=== PATIENT | male | born 1935 | race Caucasian/White ===

== ENCOUNTER → 2016-06-11 | Outpatient (CLI) | payer MEDICARE, BC ==
[2016-06-11 14:10] LABS: CH 32.3; CHCM 32.4; HCT 39.6 % (39.0-53.0); HDW 2.66; HGB 12.1 gm/dL (13.0-17.5); MCH 30.7 pg (25.0-35.0); MCHC 30.6 g/dL (31.0-37.0); MCV 100.1 fL (80.0-100.0); Macrocytosis Slight; Mean Platelet Volume 7.6; RBC 3.95 m/uL (4.30-5.90); RDW 15.7 % (11.5-15.5); WBC 9.7 k/uL (3.8-10.6)
[2016-06-11 14:44] LABS: Calcium 9.3 mg/dL (8.4-10.2); Phosphorous 3.2 mg/dL (2.5-4.5); Potassium 4.7 mmol/L (3.5-5.1)
[2016-06-11 14:46] LABS: Creatinine,Urine Random 36.7 mg/dL
[2016-06-11 14:53] LABS: % Iron Saturation 37.8 % (20-50)
[2016-06-12 10:29] LABS: Mis test requested (Non-blood) TP Urine Random
== END | disposition home or self-care (01) ==
LOC: LABWHC1 12:50
PROVIDERS: ATTEND Nurse Practitioner Family
DX: N18.3 Chronic kidney disease, stage 3 (moderate) (principal); D63.1 Anemia in chronic kidney disease; N25.81 Secondary hyperparathyroidism of renal origin; E55.9 Vitamin D deficiency, unspecified
CPT/HCPCS: 36415; 80048; 82306; 82570; 82728; 83540; 83550; 83735; 83970; 84100; 84156; 85027

== ENCOUNTER → 2016-10-15 | Outpatient (CLI) | payer MEDICARE, BC ==
[2016-10-15 14:52] LABS: CH 32.5; CHCM 33.2; HDW 2.65; MCH 31.8 pg (25.0-35.0); MCHC 32.3 g/dL (31.0-37.0); MCV 98.3 fL (80.0-100.0); Macrocytosis Slight; Mean Platelet Volume 7.2; RBC 3.76 m/uL (4.30-5.90); RDW 15.4 % (11.5-15.5); WBC 9.7 k/uL (3.8-10.6)
[2016-10-15 15:03] LABS: Calcium 9.5 mg/dL (8.4-10.2); Magnesium 1.8 mg/dL (1.6-2.3); Phosphorous 4.3 mg/dL (2.5-4.5); Potassium 5.2 mmol/L (3.5-5.1)
[2016-10-15 15:10] LABS: Creatinine,Urine Random 25.2 mg/dL
== END | disposition home or self-care (01) ==
LOC: LABWHC1 14:14
PROVIDERS: ATTEND Nurse Practitioner Family
DX: D63.1 Anemia in chronic kidney disease (principal); N25.81 Secondary hyperparathyroidism of renal origin; N18.3 Chronic kidney disease, stage 3 (moderate); R80.9 Proteinuria, unspecified; E55.9 Vitamin D deficiency, unspecified
CPT/HCPCS: 36415; 80048; 82306; 82570; 82728; 83540; 83550; 83735; 83970; 84100; 84156; 85027

== ENCOUNTER 2016-11-26 13:04 | Inpatient (IN) | payer MEDICARE, BC ==
[2016-11-26] MEDS ORDERED: SODIUM CHLORIDE 0.9% 500 ML IV STA (13:18)
[2016-11-26] MEDS ORDERED: RX INFO: IV CONTRAST WAS GIVEN 1 EACH MISC MISCELLANE PRN (13:38)
[2016-11-26] MEDS ORDERED: MORPHINE SULFATE 2 MG/ML SYRINGE IVP ONE (13:40)
[2016-11-26] MEDS ORDERED: ONDANSETRON 4 MG/2 ML VIAL IVP STA (13:40)
[2016-11-26] MEDS ORDERED: ENALAPRILAT 1.25 MG/ML 1 ML VIAL IVP STA (13:46)
[2016-11-26 14:01] LABS: Basophils # (A) 0.1 k/uL (0-0.2); Basophils % (A) 1 %; CH 32.4; CHCM 33.4; Eosinophils # (A) 0.1 k/uL (0-0.7); Eosinophils % (A) 1 %; HCT 36.4 % (39.0-53.0); HDW 2.97; HGB 11.9 gm/dL (13.0-17.5); Luc # (Auto) 0.09; Luc % (Auto) 1; Lymphocytes # (A) 1.2 k/uL (1.0-4.8); Lymphocytes % (A) 10 %; MCH 31.8 pg (25.0-35.0); MCHC 32.7 g/dL (31.0-37.0); MCV 97.4 fL (80.0-100.0); Mean Platelet Volume 7.2; Monocytes # (A) 0.4 k/uL (0-1.0); Monocytes % (A) 4 %; Neutrophils # (A) 9.8 k/uL (1.3-7.7); Neutrophils % (A) 84 %; RBC 3.74 m/uL (4.30-5.90); RDW 15.8 % (11.5-15.5); WBC 11.7 k/uL (3.8-10.6)
--- NOTE | 2016-11-26 14:07 | ED ---
SOB HPI - General Source: patient, RN notes reviewed Mode of arrival: wheelchair Limitations: no limitations <Macario Hernandez - Last Filed: 11/26/16 15:02> <Parag Garces - Last Filed: 11/26/16 15:22> - General Chief Complaint: Shortness of Breath Stated Complaint: SOB Time Seen by Provider: 11/26/16 13:12 - History of Present Illness Initial Comments: This an 81-year-old male presents emergency Department chief complaint shortness of breath. Patient states his shortness breath started today and progressively getting worse. Patient does complain has blood pressure is high and states that he was taken off his blood pressure medication recently and states he did take one of his old blood pressure medication minutes ago prior arrival. Patient states that he feels very anxious and just cannot catch his breath. Patient states that his blood sugar was elevated and did take 10 units of insulin prior arrival. Patient denies any nausea vomiting abdominal discomfort. Denies any chest pain states her some pressure. Denies any back pain. Patient has no headache no dizziness. Patient had a prior cardiac stent and prior DVT of his upper extremity. He states he is on some sort of blood thinner but is unsure what it is. Patient states that he is diaphoretic. (Macario Hernandez) - Related Data Home Medications Medication Instructions Recorded Confirmed Allopurinol [Zyloprim] 300 mg PO DAILY 02/13/15 11/26/16 Aspirin 81 mg PO DAILY 02/13/15 11/26/16 Benazepril HCl 5 mg PO DAILY 02/13/15 11/26/16 Carvedilol [Coreg] 3.125 mg PO BID 02/13/15 11/26/16 Isosorbide Mononitrate ER [Imdur] 60 mg PO DAILY 02/13/15 11/26/16 Levothyroxine Sodium [Synthroid] 50 mcg PO DAILY 02/13/15 11/26/16 Potassium Chloride [Klor-Con 10] 10 meq PO BID 02/13/15 11/26/16 Apixaban [Eliquis] 5 mg PO BID 10/08/16 11/26/16 Cholecalciferol [Vitamin D3] 400 unit PO DAILY@1200 10/08/16 11/26/16 Ferrous Sulfate [Feosol] 325 mg PO DAILY 10/08/16 11/26/16 Insulin NPH Hum/Reg Insulin Hm 10 unit SQ TID 10/08/16 11/26/16 [Humulin 70-30 Vial] Magnesium Oxide [Magnesium] 250 mg PO DAILY 10/08/16 11/26/16 [place]-3 Fatty Acids/Fish Oil [Fish 1 cap PO DAILY 10/08/16 11/26/16 Oil 1,000 mg Capsule] Vitamin E 1,000 unit PO DAILY 10/08/16 11/26/16 Furosemide [Lasix] 40 mg PO BID 11/26/16 11/26/16 Mupirocin 2% Oint [Bactroban 2% 1 applic TOPICAL BID 11/26/16 11/26/16 Oint] Allergies Allergy/AdvReac Type Severity Reaction Status Date / Time No Known Allergies Allergy Verified 11/26/16 14:05 Review of Systems ROS Other: All systems not noted in ROS Statement are negative. <Macario Hernandez - Last Filed: 11/26/16 15:02> ROS Other: All systems not noted in ROS Statement are negative. <Parag Garces - Last Filed: 11/26/16 15:22> ROS Statement: Those systems with pertinent positive or pertinent negative responses have been documented in the HPI. Past Medical History Past Medical History: Diabetes Mellitus, Hearing Disorder / Deafness, Myocardial Infarction ([place]), Thyroid Disorder Additional Past Medical History / Comment(s): gout Last Myocardial Infarction Date:: unk History of Any Multi-Drug Resistant Organisms: None Reported Past Surgical History: Back Surgery, Heart Catheterization With Stent Date of Last Stent Placement:: unknown Past Psychological History: No Psychological Hx Reported Smoking Status: Former smoker Past Alcohol Use History: Rare Past Drug Use History: None Reported - Past Family History Mother Family Medical History: Diabetes Mellitus Additional Family Medical History / Comment(s): age 79 from "a little bit of everything" Father Family Medical History: CVA/TIA Additional Family Medical History / Comment(s): age 83 <Macario Hernandez - Last Filed: 11/26/16 15:02> General Exam Limitations: no limitations General appearance: alert, in no apparent distress, other (Diaphoretic) Head exam: Present: atraumatic, normocephalic, normal inspection Neck exam: Present: normal inspection. Absent: tenderness, meningismus, lymphadenopathy Respiratory exam: Present: normal lung sounds bilaterally. Absent: respiratory distress, wheezes, rales, rhonchi, stridor Cardiovascular Exam: Present: regular rate, normal rhythm, normal heart sounds. Absent: systolic murmur, diastolic murmur, rubs, gallop, clicks GI/Abdominal exam: Present: soft, normal bowel sounds. Absent: distended, tenderness, guarding, rebound, rigid Neurological exam: Present: alert, oriented X3, CN II-XII intact Skin exam: Present: warm, dry, intact, normal color. Absent: rash <Macario Hernandez - Last Filed: 11/26/16 15:02> General appearance: alert, in no apparent distress Head exam: Present: atraumatic, normocephalic, normal inspection Eye exam: Present: normal appearance, PERRL, EOMI. Absent: scleral icterus, conjunctival injection, periorbital swelling ENT exam: Present: normal exam, mucous membranes moist Neck exam: Present: normal inspection. Absent: tenderness, meningismus, lymphadenopathy Respiratory exam: Present: normal lung sounds bilaterally. Absent: respiratory distress, wheezes, rales, rhonchi, stridor Cardiovascular Exam: Present: regular rate, normal rhythm, normal heart sounds. Absent: systolic murmur, diastolic murmur, rubs, gallop, clicks GI/Abdominal exam: Present: soft, normal bowel sounds. Absent: distended, tenderness, guarding, rebound, rigid Extremities exam: Present: normal inspection, full ROM, normal capillary refill. Absent: tenderness, pedal edema, joint swelling, calf tenderness Back exam: Present: normal inspection Neurological exam: Present: alert, oriented X3, CN II-XII intact Psychiatric exam: Present: normal affect, normal mood Skin exam: Present: warm, dry, intact, normal color. Absent: rash <Parag Garces - Last Filed: 11/26/16 15:22> Course <Macario Hernandez - Last Filed: 11/26/16 15:02> <Parag Garces - Last Filed: 11/26/16 15:22> Vital Signs 11/26/16 11/26/16 11/26/16 13:05 13:30 13:45 Temperature 97 F L Pulse Rate 74 80 79 Respiratory 24 24 24 Rate Blood Pressure 208/94 227/101 201/93 O2 Sat by Pulse 91 L 92 L 95 Oximetry 11/26/16 11/26/16 11/26/16 14:01 14:15 14:30 Temperature Pulse Rate 75 71 73 Respiratory 24 22 24 Rate Blood Pressure 182/78 188/78 187/77 O2 Sat by Pulse 97 99 97 Oximetry 11/26/16 11/26/16 11/26/16 14:45 14:55 15:00 Temperature Pulse Rate 73 72 72 Respiratory 22 22 22 Rate Blood Pressure 194/81 172/77 192/78 O2 Sat by Pulse 100 100 100 Oximetry 11/26/16 11/26/16 15:05 15:10 Temperature Pulse Rate 72 71 Respiratory 22 22 Rate Blood Pressure 175/74 172/74 O2 Sat by Pulse 99 99 Oximetry - Reevaluation(s) Reevaluation #1: 11/26/16 15:22 Patient showing improvement with blood pressure control, oxygen (Parag Garces) Medical Decision Making - Lab Data Result diagrams: 11/26/16 13:40 11/26/16 13:40 <Macario Hernandez - Last Filed: 11/26/16 15:02> - Lab Data Result diagrams: 11/26/16 13:40 11/26/16 13:40 <Parag Garces - Last Filed: 11/26/16 15:22> - Medical Decision Making 81-year-old ER for evaluation for respiratory failure secondary to hypertensive emergency and CHF. Patient also severe hyponatremia, will workup gradual x-ray replacement replacement with continued diuresis should to be admitted to telemetry for monitoring of cardiopulmonary status (Parag Garces) - Lab Data Lab Results 11/26/16 11/26/16 11/26/16 Range/Units 13:40 13:40 13:40 WBC 11.7 H (3.8-10.6) k/uL RBC 3.74 L (4.30-5.90) m/uL Hgb 11.9 L (13.0-17.5) gm/dL Hct 36.4 L (39.0-53.0) % MCV 97.4 (80.0-100.0) fL MCH 31.8 (25.0-35.0) pg MCHC 32.7 (31.0-37.0) g/dL RDW 15.8 H (11.5-15.5) % Plt Count 482 H (150-450) k/uL Neutrophils % 84 % Lymphocytes % 10 % Monocytes % 4 % Eosinophils % 1 % Basophils % 1 % Neutrophils # 9.8 H (1.3-7.7) k/uL Lymphocytes # 1.2 (1.0-4.8) k/uL Monocytes # 0.4 (0-1.0) k/uL Eosinophils # 0.1 (0-0.7) k/uL Basophils # 0.1 (0-0.2) k/uL PT (9.0-12.0) sec INR (<1.2) APTT (22.0-30.0) sec D-Dimer (<0.60) mg/L FEU Sodium 116 L* (137-145) mmol/L Potassium 4.8 (3.5-5.1) mmol/L Chloride 81 L (98-107) mmol/L Carbon Dioxide 24 (22-30) mmol/L Anion Gap 11 mmol/L BUN 38 H (9-20) mg/dL Creatinine 1.36 H (0.66-1.25) mg/dL Est GFR (MDRD) Af Amer >60 (>60 ml/min/1.73 sqM) Est GFR (MDRD) Non-Af 50 (>60 ml/min/1.73 sqM) Glucose 360 H (74-99) mg/dL Plasma Lactic Acid [place] (0.7-2.0) mmol/L Calcium 8.7 (8.4-10.2) mg/dL Magnesium 1.7 (1.6-2.3) mg/dL Total Bilirubin 0.6 (0.2-1.3) mg/dL AST 33 (17-59) U/L ALT 42 (21-72) U/L Alkaline Phosphatase 203 H (38-126) U/L Total Creatine Kinase 158 (55-170) U/L CK-MB (CK-2) 6.3 H* (0.0-2.4) ng/mL CK-MB (CK-2) Rel Index 4.0 Troponin I <0.012 (0.000-0.034) ng/mL NT-Pro-B Natriuret Pep pg/mL Total Protein 6.2 L (6.3-8.2) g/dL Albumin 3.3 L (3.5-5.0) g/dL Acetone, Qual Negative (Negative) 11/26/16 11/26/16 11/26/16 Range/Units 13:40 13:40 13:40 WBC (3.8-10.6) k/uL RBC (4.30-5.90) m/uL Hgb (13.0-17.5) gm/dL Hct (39.0-53.0) % MCV (80.0-100.0) fL MCH (25.0-35.0) pg MCHC (31.0-37.0) g/dL RDW (11.5-15.5) % Plt Count (150-450) k/uL Neutrophils % % Lymphocytes % % Monocytes % % Eosinophils % % Basophils % % Neutrophils # (1.3-7.7) k/uL Lymphocytes # (1.0-4.8) k/uL Monocytes # (0-1.0) k/uL Eosinophils # (0-0.7) k/uL Basophils # (0-0.2) k/uL PT 10.4 (9.0-12.0) sec INR 1.0 (<1.2) APTT 28.6 (22.0-30.0) sec D-Dimer 0.41 (<0.60) mg/L FEU Sodium (137-145) mmol/L Potassium (3.5-5.1) mmol/L Chloride (98-107) mmol/L Carbon Dioxide (22-30) mmol/L Anion Gap mmol/L BUN (9-20) mg/dL Creatinine (0.66-1.25) mg/dL Est GFR (MDRD) Af Amer (>60 ml/min/1.73 sqM) Est GFR (MDRD) Non-Af (>60 ml/min/1.73 sqM) Glucose (74-99) mg/dL Plasma Lactic Acid [place] 1.0 (0.7-2.0) mmol/L Calcium (8.4-10.2) mg/dL Magnesium (1.6-2.3) mg/dL Total Bilirubin (0.2-1.3) mg/dL AST (17-59) U/L ALT (21-72) U/L Alkaline Phosphatase (38-126) U/L Total Creatine Kinase (55-170) U/L CK-MB (CK-2) (0.0-2.4) ng/mL CK-MB (CK-2) Rel Index Troponin I (0.000-0.034) ng/mL NT-Pro-B Natriuret Pep 6920 pg/mL Total Protein (6.3-8.2) g/dL Albumin (3.5-5.0) g/dL Acetone, Qual (Negative) 11/26/16 14:22 EKG performed at 13:19 sinus rhythm with first-degree AV block left axis deviation right bundle isis block rate of 72 when necessary for to 72 QRS duration 156 QT/QTC 4:30/470 (Macario Hernandez) Critical Care Time Critical Care Time: Yes Total Critical Care Time: 31 <Parag Garces - Last Filed: 11/26/16 15:22> Disposition <Macario Hernandez - Last Filed: 11/26/16 15:02> <Parag Garces - Last Filed: 11/26/16 15:22> Clinical Impression: Congestive heart failure, Hyponatremia, Chest pain, Dyspnea, Hyperglycemia, WILMAN (acute kidney injury), Hypertensive emergency, Hypoxia Disposition: ADMITTED IP TO THIS HOSP Condition: Fair Referrals: José Hazel MD [Primary Care Provider] - 1-2 days
--- NOTE | 2016-11-26 14:08 | XR ---
EXAMINATION TYPE: XR chest 1V portable DATE OF EXAM: 11/26/2016 HISTORY: Pain. REFERENCE: Previous study dated 02/13/2015. FINDINGS: The heart is enlarged. There is vascular congestion and interstitial change. I cannot exclu de small effusions. IMPRESSION: FINDINGS MOST CONSISTENT WITH CONGESTIVE HEART FAILURE.
[2016-11-26 14:13] LABS: Partial Thromboplastin Time 28.6 sec (22.0-30.0); Prothrombin Time 10.4 sec (9.0-12.0)
[2016-11-26] MEDS ORDERED: FUROSEMIDE 10 MG/ML 4 ML VIAL IV STA ×2 (14:22→14:43)
[2016-11-26 14:26] LABS: ALT 42 U/L (21-72); AST 33 U/L (17-59); Alkaline Phosphatase 203 U/L (38-126); Anion Gap 11 mmol/L; Blood Urea Nitrogen 38 mg/dL (9-20); Calcium 8.7 mg/dL (8.4-10.2); Carbon Dioxide 24 mmol/L (22-30); Chloride 81 mmol/L (98-107); Creatine Kinase 158 U/L (55-170); Glucose 360 mg/dL (74-99); Magnesium 1.7 mg/dL (1.6-2.3); Non-African American GFR(MDRD) 50 (>60 ml/min/1.73 sqM); Potassium 4.8 mmol/L (3.5-5.1); Total Bilirubin 0.6 mg/dL (0.2-1.3); Total Protein 6.2 g/dL (6.3-8.2)
[2016-11-26 14:29] LABS: Sodium 116 mmol/L (137-145)
[2016-11-26] MEDS ORDERED: NITROGLYCERIN-D5W PMX 50 MG in DEXTROSE/WATER 1 250ML.BAG IV ONE (14:30)
[2016-11-26 14:39] LABS: Troponin I <0.012 ng/mL (0.000-0.034)
[2016-11-26] MEDS: SODIUM CHLORIDE 0.9% 1,000 ML IV SCH (14:50)
[2016-11-26 15:04] LABS: Creatine Kinase MB 6.3 ng/mL (0.0-2.4)
[2016-11-26 17:07] LABS: Glucose,Whole Blood 412 mg/dL (75-99)
[2016-11-26] MEDS: INSULIN LISPRO (humaLOG) 300 UNIT/3 ML VIAL SQ SCH ×2 (18:13→22:12)
[2016-11-26 18:45] LABS: Hemoglobin A1C 9.5 % (4.2-6.1)
[2016-11-26] MEDS: CARVEDILOL 3.125 MG TAB PO SCH (20:54)
[2016-11-26] MEDS: APIXABAN 5 MG TAB PO SCH (20:54)
[2016-11-26] MEDS: MUPIROCIN 2% OINT 22 GM TUBE TOPICAL SCH (20:55)
[2016-11-26] MEDS: POTASSIUM CHLORIDE ER 10 MEQ TAB.ER.PRT PO SCH (20:55)
[2016-11-26] MEDS: FUROSEMIDE 10 MG/ML 4 ML VIAL IV SCH (20:57)
[2016-11-26 21:04] LABS: Glucose,Whole Blood 255 mg/dL (75-99)
[2016-11-26] MEDS: INSULIN GLARGINE 100 UNIT/ML 10 ML VIAL SQ SCH (22:12)
--- NOTE | 2016-11-26 22:37 | HP ---
CHIEF COMPLAINT: Shortness of breath. 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 He came to the emergency room with shortness of breath, where he was found to have a blood pressure of 208/94 and blood sugar of 360. His sodium was low at 116. REVIEW OF SYSTEMS: He denies any confusion, focal neurologic deficits, cough, hemoptysis, shortness of breath, chest pain, palpitations, orthopnea, PND, etc. He has had no abdominal pain, urinary complaints, difficulty with urination, etc. Past medical history, family history, and personal and social histories reveal that he has had problems taking statins in the past. His medications include: 1. Lasix 40 mg twice a day. 2. Bactroban ointment 2% b.i.d. 3. Isosorbide mononitrate 60 mg one and a half twice a day. 4. Eliquis 5 mg twice a day. 5. Benazepril 0.5 mg once a day. 6. Magnesium 250 mg once a day. 7. Levothyroxine 0.05 mg once a day. 8. Allopurinol 300 mg once a day. 9. KCl 10 mEq twice a day. 10. Carvedilol 3.125 twice a day. 11. Vitamin D 400 mg once a day. 12. Aspirin 81 mg once a day. 13. Ferrous sulfate 325 once a day. 14. Hectorol 1 mcg one a week. PHYSICAL EXAM: Blood pressure 208/94 with a pulse of 98, respirations of 46. He was afebrile. In general, he appeared to be obese. He is awake and alert. Head, ears, eyes, nose, mouth and throat were normal. Neck veins are not distended. Thyroid is not enlarged. Chest demonstrates poor breath sounds with rales at the bases. Cardiac exam demonstrates what sounds like atrial fibrillation. Abdomen is protuberant and soft. There are no masses or tenderness. EXTREMITIES: Normal. Neurologically he is intact. IMPRESSION: 1. Acute congestive heart failure. 2. Chronic congestive heart failure. 3. Malignant hypertension. 4. Hyponatremia. 5. Uncontrolled insulin-dependent diabetes mellitus. 6. History of hypertension. 7. Mental debility. PLAN: 1. Bed rest. 2. IV fluids. 3. Diuresis. 4. Control blood pressure. 5. Correct the hyponatremia. 6. Control diabetes. MTDD
[2016-11-27] MEDS: ENALAPRILAT 1.25 MG/ML 1 ML VIAL IVP PRN ×2 (05:01→12:15)
[2016-11-27 05:56] LABS: Glucose,Whole Blood 186 mg/dL (75-99)
[2016-11-27] MEDS: LEVOTHYROXINE 50 MCG TAB PO SCH (06:43)
[2016-11-27] MEDS: CARVEDILOL 3.125 MG TAB PO SCH (06:43)
[2016-11-27] MEDS: INSULIN LISPRO (humaLOG) 300 UNIT/3 ML VIAL SQ SCH ×7 (06:43→21:43)
[2016-11-27] MEDS ORDERED: ISOSORBIDE MONONITRATE ER 60 MG TAB.ER.24H PO SCH (09:00)
[2016-11-27] MEDS: APIXABAN 5 MG TAB PO SCH ×2 (09:37→20:46)
[2016-11-27] MEDS: ASPIRIN 81 MG CHEW PO SCH (09:37)
[2016-11-27] MEDS: FERROUS SULFATE 325 MG TAB PO SCH (09:37)
[2016-11-27] MEDS: LISINOPRIL 20 MG TAB PO SCH (09:38)
[2016-11-27] MEDS: FUROSEMIDE 10 MG/ML 4 ML VIAL IV SCH ×2 (09:38→20:46)
[2016-11-27] MEDS: POTASSIUM CHLORIDE ER 10 MEQ TAB.ER.PRT PO SCH ×2 (09:38→20:46)
[2016-11-27] MEDS: MUPIROCIN 2% OINT 22 GM TUBE TOPICAL SCH ×2 (09:38→20:46)
[2016-11-27] MEDS: SPIRONOLACTONE 25 MG TAB PO SCH (09:39)
--- NOTE | 2016-11-27 10:52 | ECHOF ---
Referral Reason:CHF MEASUREMENTS -------- HEIGHT: 167.6 cm WEIGHT: 103.0 kg BP: 190/70 RVIDd: 2.8 cm (< 3.3) IVSd: 1.5 cm (0.6 - 1.1) LVIDd: 5.0 cm (3.9 - 5.3) LVPWd: 1.3 cm (0.6 - 1.1) IVSs: 1.7 cm LVIDs: 3.9 cm LVPWs: 1.9 cm LA Diam: 4.1 cm (2.7 - 3.8) LAESV Index (A-L): 40.05 ml/m Ao Diam: 3.4 cm (2.0 - 3.7) AV Cusp: 2.1 cm (1.5 - 2.6) MV EXCURSION: 14.230 mm (> 18.000) MV EF SLOPE: 63 mm/s (70 - 150) EPSS: 1.1 cm MV E [place]: 0.90 m/s MV DecT: 125 ms MV A [place]: 0.70 m/s MV E/A Ratio: 1.29 AR PHT: 491 ms FINDINGS -------- Sinus rhythm. This was a technically difficult study with suboptimal apical views. The left ventricular size is normal. There is moderate concentric left ventricular hypertrophy. Overall left ventricular systolic function is mildly impaired with, an EF between 45 - 50 %. Apical septum LV wall motion is hypokinetic. [place] Hypokinesis. The right ventricle is normal in size. LA is severely dilated >40 ml/m2 The right atrium is normal in size. 1.5mg of Definity was utilized for enhancement of images There is mild aortic valve sclerosis. There is mild aortic regurgitation. Mild mitral annular calcification present. Mild mitral regurgitation is present. The tricuspid valve appears structurally normal. No regurgitation noted There is no pulmonic regurgitation present. The aortic root size is normal. IVC Not well visulized. There is no pericardial effusion. CONCLUSIONS -------- 1. Sinus rhythm. 2. The right atrium is normal in size. 3. 1.5mg of Definity was utilized for enhancement of images 4. There is mild aortic valve sclerosis. 5. There is mild aortic regurgitation. 6. Mild mitral annular calcification present. 7. Mild mitral regurgitation is present. 8. The tricuspid valve appears structurally normal. 9. No regurgitation noted 10. There is no pulmonic regurgitation present. 11. The aortic root size is normal. 12. This was a technically difficult study with suboptimal apical views. 13. IVC Not well visulized. 14. There is no pericardial effusion. 15. The left ventricular size is normal. 16. There is moderate concentric left ventricular hypertrophy. 17. Overall left ventricular systolic function is mildly impaired with, an EF between 45 - 50 %. 18. Apical septum LV wall motion is hypokinetic. 19. [place] Hypokinesis. 20. The right ventricle is normal in size. 21. LA is severely dilated >40 ml/m2 [employer]: Amparo Rodriguez RDCS
--- NOTE | 2016-11-27 11:26 | P.CRDCN ---
History of Present Illness Consult date: 11/27/16 Requesting physician: José Hazel Consult reason: congestive heart failure, shortness of breath Chief complaint: Shortness of breath History of present illness: This is an 81-year-old gentleman with history of hypertension, diabetes, hyperlipidemia, coronary artery disease with prior stent placement, prior DVT in the right upper extremity, history of renal failure, bilateral leg ulcerations, who presents to the hospital with symptoms of progressively worsening shortness of breath. According to the patient, he has been getting progressively more and more short of breath and noticing increasing peripheral edema. The son is also at bedside providing some of the patient's history and information. Patient also was recently taken off of his antihypertensive medication as well as his Lasix, then the son states they were alternating between the Lasix and his antihypertensives. EKG on admission shows a normal sinus rhythm with first-degree AV block and right bundle branch block pattern. Nonspecific ST-T wave changes. Chest x-ray reveals findings most consistent with congestive heart failure. Echocardiogram with Doppler study was performed which revealed an ejection fraction of 45-50%. LA is severely dilated greater than 40, apical hypokinesia noted. White blood cell count 11.7, hemoglobin 11.9 , platelet count 482. Sodium on admission 116, potassium 4.8, BUN 38, creatinine 1.3. AST and ALT are normal, alk phosphatase 203, troponin 0.012. BNP level 6920. Blood pressure on admission 208/94, heart rate in the 70s, 91% on room air. Blood pressure this morning 160/70 heart rate in the 70s, afebrile. At the time of examination this morning, patient is sitting up in his chair, he does appear intermittently confused, his son is at the bedside. According to the patient and his son he does live alone and gives himself his medications. Up until approximately one week ago he was apparently cutting his grass and doing all of the activities of daily living without much difficulty. Past Medical History Past Medical History: Diabetes Mellitus, Hearing Disorder / Deafness, Myocardial Infarction (DE), Thyroid Disorder Additional Past Medical History / Comment(s): gout Last Myocardial Infarction Date:: unk History of Any Multi-Drug Resistant Organisms: None Reported Past Surgical History: Back Surgery, Heart Catheterization With Stent Date of Last Stent Placement:: unknown Past Psychological History: No Psychological Hx Reported Smoking Status: Former smoker Past Alcohol Use History: Rare Past Drug Use History: None Reported - Past Family History Mother Family Medical History: Diabetes Mellitus Additional Family Medical History / Comment(s): age 79 from "a little bit of everything" Father Family Medical History: CVA/TIA Additional Family Medical History / Comment(s): age 83 Medications and Allergies Home Medications Medication Instructions Recorded Confirmed Type Allopurinol [Zyloprim] 300 mg PO DAILY 02/13/15 11/26/16 History Aspirin 81 mg PO DAILY 02/13/15 11/26/16 History Benazepril HCl 5 mg PO DAILY 02/13/15 11/26/16 History Carvedilol [Coreg] 3.125 mg PO BID 02/13/15 11/26/16 History Isosorbide Mononitrate ER [Imdur] 60 mg PO DAILY 02/13/15 11/26/16 History Levothyroxine Sodium [Synthroid] 50 mcg PO DAILY 02/13/15 11/26/16 History Potassium Chloride [Klor-Con 10] 10 meq PO BID 02/13/15 11/26/16 History Apixaban [Eliquis] 5 mg PO BID 10/08/16 11/26/16 History Cholecalciferol [Vitamin D3] 400 unit PO DAILY@1200 10/08/16 11/26/16 History Ferrous Sulfate [Feosol] 325 mg PO DAILY 10/08/16 11/26/16 History Insulin NPH Hum/Reg Insulin Hm 10 unit SQ TID 10/08/16 11/26/16 History [Humulin 70-30 Vial] Magnesium Oxide [Magnesium] 250 mg PO DAILY 10/08/16 11/26/16 History [place]-3 Fatty Acids/Fish Oil [Fish 1 cap PO DAILY 10/08/16 11/26/16 History Oil 1,000 mg Capsule] Vitamin E 1,000 unit PO DAILY 10/08/16 11/26/16 History Furosemide [Lasix] 40 mg PO BID 11/26/16 11/26/16 History Mupirocin 2% Oint [Bactroban 2% 1 applic TOPICAL BID 11/26/16 11/26/16 History Oint] Allergies Allergy/AdvReac Type Severity Reaction Status Date / Time No Known Allergies Allergy Verified 11/26/16 14:05 Physical Exam Vitals: Vital Signs Temp Pulse Pulse Resp BP BP BP 11/27/16 08:00 97.1 F L 72 18 161/71 11/27/16 04:00 75 18 190/78 11/27/16 00:00 97 F L 65 16 167/70 11/26/16 20:00 96.8 F L 67 16 176/75 11/26/16 16:42 97.0 F L 74 20 175/79 11/26/16 16:35 80 16 197/86 208/85 11/26/16 16:30 72 20 179/79 11/26/16 16:00 62 22 160/74 11/26/16 15:45 69 20 173/75 11/26/16 15:30 71 22 173/75 11/26/16 15:15 77 22 181/76 11/26/16 15:10 71 22 172/74 11/26/16 15:05 72 22 175/74 11/26/16 15:00 72 22 192/78 11/26/16 14:55 72 22 172/77 11/26/16 14:45 73 22 194/81 11/26/16 14:30 73 24 187/77 11/26/16 14:15 71 22 188/78 11/26/16 14:01 75 24 182/78 11/26/16 13:45 79 24 201/93 11/26/16 13:30 80 24 227/101 11/26/16 13:05 97 F L 74 24 208/94 Pulse Ox 11/27/16 08:00 97 11/27/16 04:00 98 11/27/16 00:00 97 11/26/16 20:00 98 11/26/16 16:42 99 11/26/16 16:35 98 11/26/16 16:30 99 11/26/16 16:00 99 11/26/16 15:45 99 11/26/16 15:30 99 11/26/16 15:15 99 11/26/16 15:10 99 11/26/16 15:05 99 11/26/16 15:00 100 11/26/16 14:55 100 11/26/16 14:45 100 11/26/16 14:30 97 11/26/16 14:15 99 11/26/16 14:01 97 11/26/16 13:45 95 11/26/16 13:30 92 L 11/26/16 13:05 91 L Intake and Output 11/26/16 11/27/16 11/27/16 22:59 06:59 14:59 Intake Total 180 400 360 Output Total 1100 200 200 Balance -920 200 160 Intake: IV 400 Sodium Chloride 0.9% 1, 400 000 ml @ 50 mls/hr IV . Q20H [facility] Rx#:[id number] Oral 180 360 Output: Urine 1100 200 200 Other: # Voids 1 # Bowel Movements 0 Weight 101.9 kg 103.1 kg PHYSICAL EXAMINATION: HEENT: Head is atraumatic, normocephalic. Pupils equal, round. Neck is supple. There is elevated jugular venous pressure. HEART EXAMINATION: Heart S1 S2 1 systolic murmur is heard. CHEST EXAMINATION: Lungs reveal diminished air entry to bilateral bases with scattered coarse rhonchi that clear with cough. ABDOMEN: Soft, obese, nontender. Bowel sounds are heard. No organomegaly noted. EXTREMITIES: 1+ peripheral pulses with 2+ evidence of peripheral edema, bilateral Reid wraps in place. . NEUROLOGIC patient is awake, alert and oriented -3. . Results 11/26/16 13:40 11/26/16 13:40 Cardiac Enzymes 11/26/16 11/26/16 Range/Units 13:40 13:40 AST 33 (17-59) U/L CK-MB (CK-2) 6.3 H* (0.0-2.4) ng/mL Troponin I <0.012 (0.000-0.034) ng/mL Coagulation 11/26/16 Range/Units 13:40 PT 10.4 (9.0-12.0) sec APTT 28.6 (22.0-30.0) sec CBC 11/26/16 Range/Units 13:40 WBC 11.7 H (3.8-10.6) k/uL RBC 3.74 L (4.30-5.90) m/uL Hgb 11.9 L (13.0-17.5) gm/dL Hct 36.4 L (39.0-53.0) % Plt Count 482 H (150-450) k/uL Comprehensive Metabolic Panel 11/26/16 Range/Units 13:40 Sodium 116 L* (137-145) mmol/L Potassium 4.8 (3.5-5.1) mmol/L Chloride 81 L (98-107) mmol/L Carbon Dioxide 24 (22-30) mmol/L BUN 38 H (9-20) mg/dL Creatinine 1.36 H (0.66-1.25) mg/dL Glucose 360 H (74-99) mg/dL Calcium 8.7 (8.4-10.2) mg/dL AST 33 (17-59) U/L ALT 42 (21-72) U/L Alkaline Phosphatase 203 H (38-126) U/L Total Protein 6.2 L (6.3-8.2) g/dL Albumin 3.3 L (3.5-5.0) g/dL Current Medications Generic Name Dose Route Start Last Admin Trade Name Freq PRN Reason Stop Dose Admin Allopurinol 300 mg 11/27/16 09:00 Zyloprim PO DAILY CARA Apixaban 5 mg 11/26/16 21:00 11/27/16 09:37 Eliquis PO 5 mg BID CARA Administration Aspirin 81 mg 11/27/16 09:00 11/27/16 09:37 Aspirin PO 81 mg DAILY [facility]A Administration Carvedilol 3.125 mg 11/26/16 20:00 11/27/16 06:43 Coreg PO 3.125 mg AC-BID CARA Administration Enalaprilat 1.25 mg 11/26/16 15:21 11/27/16 05:01 Vasotec IVP 1.25 mg Q4HR PRN Administration Blood Pressure - High Ferrous Sulfate 325 mg 11/27/16 09:00 11/27/16 09:37 Feosol PO 325 mg DAILY CARA Administration Furosemide 40 mg 11/26/16 21:00 11/27/16 09:38 Lasix IV 40 mg Q12HR [facility]A Administration Nitroglycerin/Dextrose 50 mg/ 250 mls @ 1.5 mls/hr 11/26/16 14:30 11/26/16 14 :50 IV Solution IV 11/27/16 14:29 5 mcg/min .Q24H ONE 1.5 mls/hr Protocol Administration 5 MCG/MIN Sodium Chloride 1,000 mls @ 50 mls/hr 11/26/16 14:45 11/26/16 14:50 Saline 0.9% IV 50 mls/hr .Q20H [facility]A Administration Insulin Glargine 50 unit 11/26/16 21:00 11/26/16 22:12 Lantus SQ 50 unit HS CARA Administration Insulin Human Lispro 0 unit 11/26/16 17:30 11/27/16 06:43 Humalog SQ 2 unit ACHS CARA Administration Protocol Insulin Human Lispro 10 unit 11/27/16 07:30 11/27/16 07:05 Humalog SQ 10 unit AC-TID CARA Administration Levothyroxine Sodium 50 mcg 11/27/16 06:30 11/27/16 06:43 Synthroid PO 50 mcg DAILY@0630 CARA Administration Lisinopril 40 mg 11/27/16 09:00 11/27/16 09:38 Zestril PO 40 mg DAILY CARA Administration Miscellaneous Information 1 each 11/26/16 13:38 11/26/16 14:54 Rx Info: Iv Contrast Was Given MISCELLANE 11/28/16 13:39 1 each DAILY PRN Administration Per Protocol Mupirocin 1 applic 11/26/16 21:00 11/27/16 09:38 Bactroban Oint TOPICAL 1 applic BID CARA Administration Potassium Chloride 10 meq 11/26/16 21:00 11/27/16 09:38 K-Dur 10 PO 10 meq BID CARA Administration Spironolactone 25 mg 11/27/16 09:00 11/27/16 09:39 Aldactone PO 25 mg DAILY CARA Administration Intake and Output 11/26/16 11/27/16 11/27/16 22:59 06:59 14:59 Intake Total 180 400 360 Output Total 1100 200 200 Balance -920 200 160 Intake: IV 400 Sodium Chloride 0.9% 1, 400 000 ml @ 50 mls/hr IV . Q20H [facility] Rx#:[id number] Oral 180 360 Output: Urine 1100 200 200 Other: # Voids 1 # Bowel Movements 0 Weight 101.9 kg 103.1 kg 11/26/16 13:40 11/26/16 13:40 EKG Interpretations (text) EKG shows a normal sinus rhythm with first-degree AV block and right bundle branch block pattern. 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 #2 accelerated hypertension #3 diabetes, uncontrolled #4 hyperlipidemia, untreated #5 history of DVT, on Eliquis for anticoagulation #6 coronary artery disease with prior stent placement, exact details not available. We will attempt to obtain old records. #7 hyponatremia, we'll place the patient on fluid restriction. Plan We will continue current dose of IV Lasix. Decrease aspirin 81 mg daily, increase Coreg to 6.25 twice a day. Continue ERID inhibitor and Aldactone. Further recommendations to follow. DNP note has been reviewed, I agree with a documented findings and plan of care. Patient was seen and examined.
[2016-11-27] MEDS ORDERED: CARVEDILOL 3.125 MG TAB PO ONE (11:30)
[2016-11-27 11:35] LABS: Glucose,Whole Blood 206 mg/dL (75-99)
[2016-11-27 11:48] VITALS: BMI 36.6
[2016-11-27] MEDS: ALLOPURINOL 300 MG TAB PO SCH (12:12)
[2016-11-27] MEDS: SODIUM CHLORIDE 0.9% 1,000 ML IV SCH (12:20)
--- NOTE | 2016-11-27 13:46 | CDI ---
In responding to this query, please exercise your independent professional judgment. The [facility] Coding Staff and Clinical Documentation Specialists appreciate your assistance in clarifying documentation, maintaining compliance with coding guidelines, accurately documenting patients condition and capturing severity of illness. The fact that a question is asked does not imply that any particular answer is desired or expected. Communication forms are a method of clarifying documentation and are not made part of the Legal Health Record. Thank you in advance for your clarification. 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 Admitted with Acute on Chronic Systolic and Diastolic Heart Failure. Hypertensive Emergency documented per ED physician Patient history/risk factors: Hypertension Clinical Indicators: BP 208/94, 227/101, 208/85, "Hypertensive Emergency" per ED note. "Malignant hypertension" documented per H&P, "Accelerated hypertension " documented per Cardiology consult. Treatment: IV Vasotec 1.25mg, NS bolus, In your professional opinion, can you please clarify - Hypertensive Emergency - Hypertensive Crisis - Other - Unable to determine Please document in your progress notes and discharge summary in order to capture severity of illness and risk of mortality. Include clinical findings that support your diagnosis. FYI: Press F11 to launch patient chart. JAVI
[2016-11-27 16:35] LABS: Glucose,Whole Blood 138 mg/dL (75-99)
[2016-11-27] MEDS: CARVEDILOL 6.25 MG TAB PO SCH (18:00)
[2016-11-27 21:21] LABS: Glucose,Whole Blood 190 mg/dL (75-99)
[2016-11-27] MEDS: INSULIN GLARGINE 100 UNIT/ML 10 ML VIAL SQ SCH (21:43)
[2016-11-28] MEDS: ENALAPRILAT 1.25 MG/ML 1 ML VIAL IVP PRN (03:39)
[2016-11-28 05:57] LABS: Glucose,Whole Blood 184 mg/dL (75-99)
[2016-11-28 06:35] LABS: Basophils # (A) 0.1 k/uL (0-0.2); Basophils % (A) 1 %; CH 32.3; CHCM 33.7; Eosinophils # (A) 0.7 k/uL (0-0.7); Eosinophils % (A) 5 %; HCT 35.9 % (39.0-53.0); HDW 2.92; HGB 11.6 gm/dL (13.0-17.5); Luc # (Auto) 0.19; Luc % (Auto) 1; Lymphocytes # (A) 2.1 k/uL (1.0-4.8); Lymphocytes % (A) 16 %; MCHC 32.2 g/dL (31.0-37.0); MCV 96.4 fL (80.0-100.0); Mean Platelet Volume 7.4; Monocytes # (A) 0.7 k/uL (0-1.0); Monocytes % (A) 5 %; Neutrophils # (A) 9.6 k/uL (1.3-7.7); Neutrophils % (A) 72 %; RBC 3.73 m/uL (4.30-5.90); RDW 15.9 % (11.5-15.5); WBC 13.4 k/uL (3.8-10.6); WBC (Perox) 13.91
[2016-11-28 06:38] LABS: Calcium 8.6 mg/dL (8.4-10.2); Potassium 4.7 mmol/L (3.5-5.1)
[2016-11-28] MEDS: LEVOTHYROXINE 50 MCG TAB PO SCH (06:51)
[2016-11-28] MEDS: SODIUM CHLORIDE 0.9% 1,000 ML IV SCH (06:51)
[2016-11-28] MEDS: CARVEDILOL 6.25 MG TAB PO SCH ×2 (06:52→18:00)
[2016-11-28] MEDS: INSULIN LISPRO (humaLOG) 300 UNIT/3 ML VIAL SQ SCH ×7 (07:10→21:41)
[2016-11-28] MEDS: ASPIRIN 81 MG CHEW PO SCH (08:41)
[2016-11-28] MEDS: FUROSEMIDE 10 MG/ML 4 ML VIAL IV SCH (08:41)
[2016-11-28] MEDS: ALLOPURINOL 300 MG TAB PO SCH (08:41)
[2016-11-28] MEDS: APIXABAN 5 MG TAB PO SCH (08:41)
[2016-11-28] MEDS: MUPIROCIN 2% OINT 22 GM TUBE TOPICAL SCH ×2 (08:42→20:39)
[2016-11-28] MEDS: LISINOPRIL 20 MG TAB PO SCH (08:42)
[2016-11-28] MEDS: SPIRONOLACTONE 25 MG TAB PO SCH (08:42)
[2016-11-28] MEDS: FERROUS SULFATE 325 MG TAB PO SCH (08:42)
[2016-11-28] MEDS: POTASSIUM CHLORIDE ER 10 MEQ TAB.ER.PRT PO SCH ×2 (08:42→20:39)
[2016-11-28 11:36] LABS: Glucose,Whole Blood 144 mg/dL (75-99)
--- NOTE | 2016-11-28 16:04 | P.PN ---
Subjective This is an 81-year-old gentleman with history of hypertension, diabetes, hyperlipidemia, coronary artery disease with prior stent placement, prior DVT in the right upper extremity, history of renal failure, bilateral leg ulcerations, who presents to the hospital with symptoms of progressively worsening shortness of breath. According to the patient, he has been getting progressively more and more short of breath and noticing increasing peripheral edema. The son is also at bedside providing some of the patient's history and information. Patient also was recently taken off of his antihypertensive medication as well as his Lasix, then the son states they were alternating between the Lasix and his antihypertensives. EKG on admission shows a normal sinus rhythm with first-degree AV block and right bundle branch block pattern. Nonspecific ST-T wave changes. Chest x-ray reveals findings most consistent with congestive heart failure. Echocardiogram with Doppler study was performed which revealed an ejection fraction of 45-50%. LA is severely dilated greater than 40, apical hypokinesia noted. White blood cell count 11.7, hemoglobin 11.9 , platelet count 482. Sodium on admission 116, potassium 4.8, BUN 38, creatinine 1.3. AST and ALT are normal, alk phosphatase 203, troponin 0.012. BNP level 6920. Blood pressure on admission 208/94, heart rate in the 70s, 91% on room air. Blood pressure this morning 160/70 heart rate in the 70s, afebrile. At the time of examination this morning, patient is sitting up in his chair, he does appear intermittently confused, his son is at the bedside. According to the patient and his son he does live alone and gives himself his medications. Up until approximately one week ago he was apparently cutting his grass and doing all of the activities of daily living without much difficulty. 11/28/2016 Patient was initiated on IV Lasix yesterday, he has been putting out urine. Weight is unchanged. Creatinine 1.6 today. Sodium remains 116. We do have him on fluid restrictions 1200 ml. Objective - Vital Signs Vital signs: Vital Signs Temp 97 F L 11/28/16 08:39 Pulse 71 11/28/16 12:39 Resp 16 11/28/16 12:45 BP 151/67 11/28/16 12:39 Pulse Ox 97 11/28/16 12:39 Intake & Output 11/27/16 11/28/16 11/28/16 18:59 06:59 18:59 Intake Total 725 765 Output Total 012 637 0055 Balance 25 -575 -235 Weight 103.1 kg 104 kg Intake: IV 400 Sodium Chloride 0.9% 1, 400 000 ml @ 50 mls/hr IV . Q20H [facility] Rx#:[id number] Oral 725 365 Output: Urine 653 363 7490 Other: Voiding Method Toilet Toilet Urinal Urinal # Voids 1 1 # Bowel Movements 0 - Exam PHYSICAL EXAMINATION: HEENT: Head is atraumatic, normocephalic. Pupils equal, round. Neck is supple. There is elevated jugular venous pressure. HEART EXAMINATION: Heart S1 S2 1 systolic murmur is heard. CHEST EXAMINATION: Lungs reveal diminished air entry to bilateral bases with scattered coarse rhonchi that clear with cough. ABDOMEN: Soft, obese, nontender. Bowel sounds are heard. No organomegaly noted. EXTREMITIES: 1+ peripheral pulses with 2+ evidence of peripheral edema, bilateral Reid wraps in place. . NEUROLOGIC patient is awake, alert and oriented -3. - Labs CBC & Chem 7: 11/28/16 06:13 11/28/16 06:13 Labs: Abnormal Lab Results - Last 24 Hours (Table) 11/27/16 11/27/16 11/28/16 Range/Units 16:33 21:12 05:55 WBC (3.8-10.6) k/uL RBC (4.30-5.90) m/uL Hgb (13.0-17.5) gm/dL Hct (39.0-53.0) % RDW (11.5-15.5) % Plt Count (150-450) k/uL Neutrophils # (1.3-7.7) k/uL Sodium (137-145) mmol/L Chloride (98-107) mmol/L BUN (9-20) mg/dL Creatinine (0.66-1.25) mg/dL Glucose (74-99) mg/dL POC Glucose (mg/dL) 138 H 190 H 184 H (75-99) mg/dL 11/28/16 11/28/16 11/28/16 Range/Units 06:13 06:13 11:34 WBC 13.4 H (3.8-10.6) k/uL RBC 3.73 L (4.30-5.90) m/uL Hgb 11.6 L (13.0-17.5) gm/dL Hct 35.9 L (39.0-53.0) % RDW 15.9 H (11.5-15.5) % Plt Count 473 H (150-450) k/uL Neutrophils # 9.6 H (1.3-7.7) k/uL Sodium 116 L* (137-145) mmol/L Chloride 84 L (98-107) mmol/L BUN 47 H (9-20) mg/dL Creatinine 1.60 H (0.66-1.25) mg/dL Glucose 143 H (74-99) mg/dL POC Glucose (mg/dL) 144 H (75-99) mg/dL Assessment and Plan Plan: Assessment and plan #1 congestive heart failure, 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 #2 accelerated hypertension #3 diabetes, uncontrolled #4 hyperlipidemia, untreated #5 history of DVT, on Eliquis for anticoagulation #6 coronary artery disease with prior stent placement, exact details not available. We will attempt to obtain old records. #7 hyponatremia, we'll place the patient on fluid restriction. Plan We will continue current dose of IV Lasix. Continue REID inhibitor, Coreg and Aldactone. Consult nephrology regarding hyponatremia Further recommendations to follow. DNP note has been reviewed, I agree with a documented findings and plan of care. Patient was seen and examined.
[2016-11-28 16:42] LABS: Glucose,Whole Blood 181 mg/dL (75-99)
[2016-11-28 18:31] LABS: Glucose,Whole Blood 174 mg/dL (75-99)
[2016-11-28] MEDS: SODIUM CHLORIDE 3%(HYPERTONIC) 500 ML IV SCH (19:49)
--- NOTE | 2016-11-28 20:00 | XR ---
EXAMINATION TYPE: XR chest 1V DATE OF EXAM: 11/28/2016 COMPARISON: 11/26/2016 HISTORY: Shortness of breath FINDINGS: Patchy left perihilar and right medial basilar infiltrates noted. Small left-sided pleural effusion. Lung volumes are diminished limiting examination. Pulmonary vasculature is also engorged. IMPRESSION: Findings which may reflect pneumonia in the appropriate clinical setting. Correlate clinically and pr ogress studies are advised.
[2016-11-28] MEDS: FUROSEMIDE 10 MG/ML 10 ML VIAL IV SCH (20:39)
[2016-11-28 20:40] LABS: Glucose,Whole Blood 84 mg/dL (75-99)
[2016-11-28] MEDS ORDERED: NALOXONE 0.4 MG/ML 1 ML VIAL IV PRN (21:13)
[2016-11-28] MEDS ORDERED: IPRATROPIUM-ALBUTEROL 3 ML NEB INHALATION PRN (21:13)
[2016-11-28] MEDS: INSULIN GLARGINE 100 UNIT/ML 10 ML VIAL SQ SCH (22:10)
[2016-11-28] MEDS: APIXABAN 2.5 MG TABLET PO SCH (22:10)
[2016-11-28 22:17] LABS: Appearance,Urine Clear (Clear); Bilirubin,Urine Negative (Negative); Glucose,Urine (UA) Negative (Negative); Ketones,Urine Negative (Negative); Leukocyte Esterase,Urine Negative (Negative); Nitrite,Urine Negative (Negative); Particle Count 912; Protein,Urine Trace (Negative); RBC,Urine 4 /hpf (0-5); Specific Gravity,Urine 1.005 (1.001-1.035); UA Billing (MACRO vs. MICRO) MICRO; Urobilinogen,Urine <2.0 mg/dL (<2.0)
[2016-11-28 22:44] LABS: Calcium 8.2 mg/dL (8.4-10.2); Potassium 4.8 mmol/L (3.5-5.1)
[2016-11-29 00:21] LABS: Calcium 8.6 mg/dL (8.4-10.2); Potassium 5.5 mmol/L (3.5-5.1)
[2016-11-29 04:54] LABS: Basophils # (A) 0.1 k/uL (0-0.2); Basophils % (A) 0 %; CH 32.1; CHCM 33.8; Eosinophils # (A) 0.6 k/uL (0-0.7); Eosinophils % (A) 4 %; HCT 36.8 % (39.0-53.0); HDW 2.97; Luc # (Auto) 0.22; Luc % (Auto) 1; Lymphocytes # (A) 2.2 k/uL (1.0-4.8); Lymphocytes % (A) 14 %; MCH 30.9 pg (25.0-35.0); MCHC 32.4 g/dL (31.0-37.0); MCV 95.4 fL (80.0-100.0); Mean Platelet Volume 6.4; Monocytes % (A) 6 %; Neutrophils # (A) 11.4 k/uL (1.3-7.7); Neutrophils % (A) 74 %; RBC 3.86 m/uL (4.30-5.90); RDW 15.8 % (11.5-15.5); WBC 15.4 k/uL (3.8-10.6); WBC (Perox) 15.62
[2016-11-29 05:01] LABS: Calcium 8.6 mg/dL (8.4-10.2); Magnesium 1.5 mg/dL (1.6-2.3); Phosphorous 4.2 mg/dL (2.5-4.5); Potassium 4.7 mmol/L (3.5-5.1)
[2016-11-29] MEDS: MAGNESIUM SULFATE-D5W PMX 1 GM in DEXTROSE/WATER 1 100ML.BAG IVPB SCH ×2 (06:38→07:46)
--- NOTE | 2016-11-29 07:01 | XR ---
EXAMINATION TYPE: XR chest 1V DATE OF EXAM: 11/29/2016 CLINICAL HISTORY: Difficulty breathing progress study. TECHNIQUE: Single AP portable upright view of the chest is obtained. COMPARISON: Chest x-ray from one day earlier FINDINGS: There is persistent bibasilar opacity felt to reflect infiltrate and/or atelectasis with s uspected small left pleural effusion. There is persistent left hilar opacity. Low lung volumes are re demonstrated. Cardiac silhouette size is stable and upper limits of normal with atherosclerotic thora cic aorta and mild central vascular congestion. Mild diffuse narrowing of the trachea is present not significantly changed from older study February 13, 2015. Osseous structures are intact IMPRESSION: Overall stable findings, mild central vascular congestion with left hilar infiltrate an d/or edema and bibasilar infiltrate and/or atelectasis with small left pleural effusion all redemonst rated. No significant change from one day earlier.
[2016-11-29 07:46] LABS: Glucose,Whole Blood 137 mg/dL (75-99)
[2016-11-29] MEDS: CARVEDILOL 6.25 MG TAB PO SCH ×2 (07:46→18:53)
[2016-11-29] MEDS: LEVOTHYROXINE 50 MCG TAB PO SCH (07:46)
[2016-11-29] MEDS: SODIUM CHLORIDE 3%(HYPERTONIC) 500 ML IV SCH ×2 (07:47→08:55)
[2016-11-29] MEDS: INSULIN LISPRO (humaLOG) 300 UNIT/3 ML VIAL SQ SCH ×7 (07:47→21:17)
[2016-11-29] MEDS ORDERED: FAMOTIDINE 20 MG TAB PO SCH (09:00)
[2016-11-29] MEDS: APIXABAN 2.5 MG TABLET PO SCH ×2 (09:08→21:18)
[2016-11-29] MEDS: FERROUS SULFATE 325 MG TAB PO SCH (09:09)
[2016-11-29] MEDS: FUROSEMIDE 10 MG/ML 10 ML VIAL IV SCH ×2 (09:09→21:18)
[2016-11-29] MEDS: ASPIRIN 81 MG CHEW PO SCH (09:09)
[2016-11-29] MEDS: ALLOPURINOL 300 MG TAB PO SCH (09:09)
[2016-11-29] MEDS: LISINOPRIL 20 MG TAB PO SCH (09:10)
[2016-11-29] MEDS: SPIRONOLACTONE 25 MG TAB PO SCH (09:21)
[2016-11-29] MEDS: POTASSIUM CHLORIDE ER 10 MEQ TAB.ER.PRT PO SCH ×2 (09:21→21:18)
[2016-11-29] MEDS ORDERED: ARTIFICIAL TEARS-HYPROMELLOSE DROPS 15 ML BTL BOTH EYES PRN (09:31)
--- NOTE | 2016-11-29 09:31 | P.NPCON ---
History of Present Illness - Reason for Consult hyponatremia - History of Present Illness Reason for consultation: Hyponatremia History of present illness: Patient is a 81-year-old male seen in renal consultation for hyponatremia. Patient's sodium level was 116 on admission and he was started on IV Lasix as well as normal saline at 50 mL an hour. His sodium level remained stable at 116. Patient presented to the hospital with dyspnea. Patient states he does have history of congestive heart failure and his diuretics were recently discontinued. He was also being weaned off his antihypertensives. Patient states after discontinuing the diuretics, he noticed worsening of dyspnea and lower extremity swelling. He did receive 3% saline last night and sodium level is up to 123 this morning. He is also maintained on Lasix 80 mg IV twice daily and is diuresing well. Patient states his dyspnea and edema are both improving. He denies chest pain. He does have chronic kidney disease stage III with baseline creatinine in the range of 1.3-1.6. GFR is at baseline. Patient has systolic CHF with ejection fraction of 45-50%. Also has history of insulin-dependent diabetes mellitus. Urinalysis is quite benign. Hemodynamically stable. Oral intake is good. Denies use of NSAIDs. Vital signs are stable. General: The patient appeared well nourished and normally developed. HEENT: Head exam is unremarkable. Neck is without jugular venous distension. LUNGS: Scattered rhonchi. Breath sounds decreased. HEART: Rate and Rhythm are regular. First and second heart sounds normal. No murmurs, rubs or gallops. ABDOMEN: Abdominal exam reveals normal bowel sounds. Non-tender and non- distended. No evidence of peritonitis. EXTREMITITES: 1+ edema. Past Medical History Past Medical History: Diabetes Mellitus, Hearing Disorder / Deafness, Myocardial Infarction ([place]), Thyroid Disorder Additional Past Medical History / Comment(s): gout Last Myocardial Infarction Date:: unk History of Any Multi-Drug Resistant Organisms: None Reported Past Surgical History: Back Surgery, Heart Catheterization With Stent Date of Last Stent Placement:: unknown Past Psychological History: No Psychological Hx Reported Smoking Status: Former smoker Past Alcohol Use History: Rare Past Drug Use History: None Reported - Past Family History Mother Family Medical History: Diabetes Mellitus Additional Family Medical History / Comment(s): age 79 from "a little bit of everything" Father Family Medical History: CVA/TIA Additional Family Medical History / Comment(s): age 83 Medications and Allergies Home Medications Medication Instructions Recorded Confirmed Type Allopurinol [Zyloprim] 300 mg PO DAILY 02/13/15 11/26/16 History Aspirin 81 mg PO DAILY 02/13/15 11/26/16 History Benazepril HCl 5 mg PO DAILY 02/13/15 11/26/16 History Carvedilol [Coreg] 3.125 mg PO BID 02/13/15 11/26/16 History Isosorbide Mononitrate ER [Imdur] 60 mg PO DAILY 02/13/15 11/26/16 History Levothyroxine Sodium [Synthroid] 50 mcg PO DAILY 02/13/15 11/26/16 History Potassium Chloride [Klor-Con 10] 10 meq PO BID 02/13/15 11/26/16 History Apixaban [Eliquis] 5 mg PO BID 10/08/16 11/26/16 History Cholecalciferol [Vitamin D3] 400 unit PO DAILY@1200 10/08/16 11/26/16 History Ferrous Sulfate [Feosol] 325 mg PO DAILY 10/08/16 11/26/16 History Insulin NPH Hum/Reg Insulin Hm 10 unit SQ TID 10/08/16 11/26/16 History [Humulin 70-30 Vial] Magnesium Oxide [Magnesium] 250 mg PO DAILY 10/08/16 11/26/16 History [place]-3 Fatty Acids/Fish Oil [Fish 1 cap PO DAILY 10/08/16 11/26/16 History Oil 1,000 mg Capsule] Vitamin E 1,000 unit PO DAILY 10/08/16 11/26/16 History Furosemide [Lasix] 40 mg PO BID 11/26/16 11/26/16 History Mupirocin 2% Oint [Bactroban 2% 1 applic TOPICAL BID 11/26/16 11/26/16 History Oint] Allergies Allergy/AdvReac Type Severity Reaction Status Date / Time No Known Allergies Allergy Verified 11/26/16 14:05 Physical Exam Vitals: Vital Signs Temp Pulse Pulse Resp BP BP Pulse Ox 11/29/16 08:00 97.7 F 81 20 161/93 96 11/29/16 07:00 74 21 148/59 99 11/29/16 06:00 76 24 155/63 99 11/29/16 05:00 73 24 161/67 99 11/29/16 04:00 98.3 F 75 25 H 119/44 97 11/29/16 03:57 73 12 11/29/16 03:00 62 16 99/41 99 11/29/16 02:00 65 15 113/48 98 11/29/16 01:00 64 12 126/89 100 11/29/16 00:00 97 F L 66 73 19 150/58 100 11/28/16 23:00 64 14 132/59 99 11/28/16 22:00 59 L 21 111/50 99 11/28/16 21:00 58 L 17 161/75 99 11/28/16 20:00 72 73 24 175/79 97 11/28/16 19:50 76 23 175/79 96 11/28/16 19:40 74 26 H 175/79 96 11/28/16 19:30 75 24 175/79 96 11/28/16 19:20 74 25 H 175/79 97 11/28/16 19:12 96 11/28/16 19:10 74 24 175/79 97 11/28/16 19:00 74 23 188/85 97 11/28/16 18:50 97.4 F L 75 24 188/85 97 11/28/16 18:40 77 185/77 92 L 11/28/16 18:30 75 11/28/16 18:16 73 16 11/28/16 18:03 73 16 170/74 98 11/28/16 12:45 16 11/28/16 12:39 71 16 151/67 97 Intake and Output 11/28/16 11/29/16 11/29/16 22:59 06:59 14:59 Intake Total 540 660 440 Output Total 1285 2200 350 Balance -846 -1545 90 Intake: IV 400 140 Magnesium Sulfate-D5w Pmx 100 1 gm In Dextrose/Water 1 100ml.bag @ 100 mls/hr IVPB Q1H [facility] Rx#: [id number] Sodium Chloride 0.9% 1, 400 000 ml @ 50 mls/hr IV . Q20H [facility] Rx#:[id number] Sodium Chloride 3%( 40 Hypertonic) 500 ml @ 40 mls/hr IV .[id number] [facility] Rx #:[id number] Intake, IV Titration 140 360 Amount Sodium Chloride 3%( 140 360 Hypertonic) 500 ml @ 40 mls/hr IV .[id number] [facility] Rx #:[id number] Oral 300 300 Output: Urine 1285 2200 350 Other: Voiding Method Indwelling Catheter Indwelling Catheter Weight 103.6 kg Results - Lab Results Most recent lab results Calcium 8.6 mg/dL (8.4-10.2) 11/29/16 04:21 Phosphorus 4.2 mg/dL (2.5-4.5) 11/29/16 04:21 Magnesium 1.5 mg/dL (1.6-2.3) L 11/29/16 04:21 11/29/16 04:21 11/29/16 08:09 Assessment and Plan Plan: Assessment: #1. Hypervolemic hyponatremia secondary to CHF exacerbation. Patient did receive 3% saline last night. Sodium level is up to 123 this morning. #2. Chronic kidney disease stage III secondary to cardiorenal syndrome and mild component of diabetic kidney disease. Baseline creatinine in the range of 1.3-1.6. #3. Systolic CHF with ejection fraction of 45-50%. #4. Volume overload. Improving. #5. Insulin-dependent diabetes mellitus. Plan: Maintain 1.5 L fluid restriction and low-salt diet. Continue with Lasix 80 mg IV twice daily. Repeat sodium level at 5 PM today. Avoid nephrotoxic agents and hypotensive episodes. Thank you for the consultation. I will continue to follow the patient with you during his hospital stay.
[2016-11-29] MEDS: MUPIROCIN 2% OINT 22 GM TUBE TOPICAL SCH ×2 (09:57→21:18)
--- NOTE | 2016-11-29 10:55 | PN ---
DATE OF SERVICE: 11/27/2016 CHIEF COMPLAINT: Congestive heart failure. HISTORY OF PRESENT ILLNESS: Patient is doing better. Shortness of breath is improving but he is still dyspneic. We are awaiting results of his echocardiogram. The patient's blood sugars are still elevated. CARDIAC: Unchanged. ABDOMEN: Protuberant, soft. EXTREMITIES: ( ). ASSESSMENT: 1. Congestive heart failure. 2. Atherosclerotic coronary artery disease ( ) ( ) repeat labs ( ). MTDD
--- NOTE | 2016-11-29 12:16 | P.CNPUL ---
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 The patient came in for worsening shortness of breath, fluid overload and hyponatremia. At the time of admission his blood pressure was quite elevated in addition. Apparently the patient was taken off the blood pressure medication and diuretics and he came into the hospital because of a worsening shortness of breath and leg edema and he was also found to be hyponatremic. His initial sodium was in the 160 range. He was given normal saline and diuretics without much improvement. Yesterday, the patient was started on 3% normal saline by nephrology and he got moved to the intensive care unit. Diuretics was also continued. This resulted to some slow recovery and his sodium level which is up to 123. Renal function is stable with a creatinine of 1.5-1.6. A follow-up sodium level is pending. Meanwhile the patient is on Lasix 80 mg IV push every 12 hours and 3% hypertonic saline today to 50 mL an hour. Chest x-ray is showing mild central vascular congestion and left hilar infiltrate/edema with possible atelectasis of the left lung base. No significant interval change compared to yesterday. Review of Systems Constitutional: Reports lethargy, Reports weakness Eyes: denies blurred vision, denies bulging eye, denies decreased vision Ears: deny: decreased hearing, ear discharge, earache Ears, nose, mouth and throat: Denies headache, Denies sore throat Cardiovascular: Reports dyspnea on exertion, Reports edema, Reports leg edema, Reports shortness of breath Respiratory: Reports cough, Reports dyspnea Gastrointestinal: Denies abdominal pain, Denies diarrhea, Denies nausea, Denies vomiting Musculoskeletal: Denies myalgias Musculoskeletal: bilateral: ankle swelling, absent: ankle pain, ankle stiffness Integumentary: Reports unusual bruising, Reports wounds Neurological: Denies numbness, Denies weakness Psychiatric: Denies anxiety, Denies depression Endocrine: Denies fatigue, Denies weight change Past Medical History Past Medical History: Coronary Artery Disease (CAD), Diabetes Mellitus, Hearing Disorder / Deafness, Myocardial Infarction ([place]), Renal Disease, Thyroid Disorder Additional Past Medical History / Comment(s): Coronary artery disease, coronary intervention stenting, congestion heart failure with an ejection fraction of 45- 50%, moderate concentric left ventricular hypertrophy, gout, diabetes mellitus, hypertension, hyperlipidemia, DVT , chronic renal failure, chronic bilateral lower extremity ulceration/venous stasis, Hypothyroid, deafness Last Myocardial Infarction Date:: unk History of Any Multi-Drug Resistant Organisms: None Reported Past Surgical History: Back Surgery, Heart Catheterization With Stent Date of Last Stent Placement:: unknown Past Psychological History: No Psychological Hx Reported Smoking Status: Former smoker Past Alcohol Use History: Rare Past Drug Use History: None Reported - Past Family History Mother Family Medical History: Diabetes Mellitus Additional Family Medical History / Comment(s): age 79 from "a little bit of everything" Father Family Medical History: CVA/TIA Additional Family Medical History / Comment(s): age 83 Medications and Allergies Home Medications Medication Instructions Recorded Confirmed Type Allopurinol [Zyloprim] 300 mg PO DAILY 02/13/15 11/26/16 History Aspirin 81 mg PO DAILY 02/13/15 11/26/16 History Benazepril HCl 5 mg PO DAILY 02/13/15 11/26/16 History Carvedilol [Coreg] 3.125 mg PO BID 02/13/15 11/26/16 History Isosorbide Mononitrate ER [Imdur] 60 mg PO DAILY 02/13/15 11/26/16 History Levothyroxine Sodium [Synthroid] 50 mcg PO DAILY 02/13/15 11/26/16 History Potassium Chloride [Klor-Con 10] 10 meq PO BID 02/13/15 11/26/16 History Apixaban [Eliquis] 5 mg PO BID 10/08/16 11/26/16 History Cholecalciferol [Vitamin D3] 400 unit PO DAILY@1200 10/08/16 11/26/16 History Ferrous Sulfate [Feosol] 325 mg PO DAILY 10/08/16 11/26/16 History Insulin NPH Hum/Reg Insulin Hm 10 unit SQ TID 10/08/16 11/26/16 History [Humulin 70-30 Vial] Magnesium Oxide [Magnesium] 250 mg PO DAILY 10/08/16 11/26/16 History [place]-3 Fatty Acids/Fish Oil [Fish 1 cap PO DAILY 10/08/16 11/26/16 History Oil 1,000 mg Capsule] Vitamin E 1,000 unit PO DAILY 10/08/16 11/26/16 History Furosemide [Lasix] 40 mg PO BID 11/26/16 11/26/16 History Mupirocin 2% Oint [Bactroban 2% 1 applic TOPICAL BID 11/26/16 11/26/16 History Oint] Allergies Allergy/AdvReac Type Severity Reaction Status Date / Time No Known Allergies Allergy Verified 11/26/16 14:05 Physical Exam Vitals: Vital Signs Temp Pulse Pulse Resp BP BP Pulse Ox 11/29/16 11:00 66 25 H 102/48 99 11/29/16 10:00 63 18 112/45 100 11/29/16 09:00 75 23 102/46 99 11/29/16 08:00 97.7 F 81 73 23 161/93 96 11/29/16 07:00 74 21 148/59 99 11/29/16 06:00 76 24 155/63 99 11/29/16 05:00 73 24 161/67 99 11/29/16 04:00 98.3 F 75 25 H 119/44 97 11/29/16 03:57 73 12 11/29/16 03:00 62 16 99/41 99 11/29/16 02:00 65 15 113/48 98 11/29/16 01:00 64 12 126/89 100 11/29/16 00:00 97 F L 66 73 19 150/58 100 11/28/16 23:00 64 14 132/59 99 11/28/16 22:00 59 L 21 111/50 99 11/28/16 21:00 58 L 17 161/75 99 11/28/16 20:00 72 73 24 175/79 97 11/28/16 19:50 76 23 175/79 96 11/28/16 19:40 74 26 H 175/79 96 11/28/16 19:30 75 24 175/79 96 11/28/16 19:20 74 25 H 175/79 97 11/28/16 19:12 96 11/28/16 19:10 74 24 175/79 97 11/28/16 19:00 74 23 188/85 97 11/28/16 18:50 97.4 F L 75 24 188/85 97 11/28/16 18:40 77 185/77 92 L 11/28/16 18:30 75 11/28/16 18:16 73 16 11/28/16 18:03 73 16 170/74 98 11/28/16 12:45 16 11/28/16 12:39 71 16 151/67 97 Intake and Output 11/28/16 11/29/16 11/29/16 22:59 06:59 14:59 Intake Total 540 660 690 Output Total 1285 2200 710 Balance -745 -1540 -20 Intake: IV 400 240 Magnesium Sulfate-D5w Pmx 200 1 gm In Dextrose/Water 1 100ml.bag @ 100 mls/hr IVPB Q1H [facility] Rx#: [id number] Sodium Chloride 0.9% 1, 400 000 ml @ 50 mls/hr IV . Q20H [facility] Rx#:[id number] Sodium Chloride 3%( 40 Hypertonic) 500 ml @ 40 mls/hr IV .[id number] [facility] Rx #:[id number] Intake, IV Titration 140 360 Amount Sodium Chloride 3%( 140 360 Hypertonic) 500 ml @ 40 mls/hr IV .[id number] [facility] Rx #:[id number] Oral 300 450 Output: Urine 1285 2200 710 Other: Voiding Method Indwelling Catheter Indwelling Catheter Indwelling Catheter Weight 103.6 kg Head exam was generally normal. There was no scleral icterus or corneal arcus. Mucous membranes were moist. Neck is short and supple there is significant crowding of the posterior oropharynx. No neck stiffness.Neck was supple and without jugular venous distension, thyromegaly, or carotid bruits. Carotids were easily palpable bilaterally. There was no adenopathy. Lung sounds are diminished bilaterally along with some bibasilar crackles in lung bases.Cardiac exam revealed the PMI to be normally situated and sized. The rhythm was regular and no extrasystoles were noted during several minutes of auscultation. The first and second heart sounds were normal and physiologic splitting of the second heart sound was noted. There were no murmurs, rubs, clicks, or gallops. Abdomen is slightly distended soft. No direct tenderness. No rebound tenderness or guarding. Extremities reveal +1 pitting edema and there is no cyanosis or clubbing. Evidence of chronic venous ulceration lower extremities bilaterally. Results - Laboratory Findings CBC and BMP: 11/29/16 04:21 11/29/16 08:09 PT/INR, D-dimer PT 10.4 sec (9.0-12.0) 11/26/16 13:40 INR 1.0 (<1.2) 11/26/16 13:40 D-Dimer 0.41 mg/L FEU (<0.60) 11/26/16 13:40 Abnormal lab findings: Abnormal Labs 11/26/16 11/26/16 11/26/16 13:40 13:40 13:40 WBC 11.7 H RBC 3.74 L Hgb 11.9 L Hct 36.4 L RDW 15.8 H Plt Count 482 H Neutrophils # 9.8 H Sodium 116 L* Potassium Chloride 81 L BUN 38 H Creatinine 1.36 H Glucose 360 H POC Glucose (mg/dL) Hemoglobin A1c Calcium Magnesium Alkaline Phosphatase 203 H CK-MB (CK-2) 6.3 H* Total Protein 6.2 L Albumin 3.3 L Urine Protein Urine Blood 11/26/16 11/26/16 11/26/16 13:40 17:03 21:03 WBC RBC Hgb Hct RDW Plt Count Neutrophils # Sodium Potassium Chloride BUN Creatinine Glucose POC Glucose (mg/dL) 412 H 255 H Hemoglobin A1c 9.5 H Calcium Magnesium Alkaline Phosphatase CK-MB (CK-2) Total Protein Albumin Urine Protein Urine Blood 11/27/16 11/27/16 11/27/16 05:53 11:34 16:33 WBC RBC Hgb Hct RDW Plt Count Neutrophils # Sodium Potassium Chloride BUN Creatinine Glucose POC Glucose (mg/dL) 186 H 206 H 138 H Hemoglobin A1c Calcium Magnesium Alkaline Phosphatase CK-MB (CK-2) Total Protein Albumin Urine Protein Urine Blood 11/27/16 11/28/16 11/28/16 21:12 05:55 06:13 WBC 13.4 H RBC 3.73 L Hgb 11.6 L Hct 35.9 L RDW 15.9 H Plt Count 473 H Neutrophils # 9.6 H Sodium Potassium Chloride BUN Creatinine Glucose POC Glucose (mg/dL) 190 H 184 H Hemoglobin A1c Calcium Magnesium Alkaline Phosphatase CK-MB (CK-2) Total Protein Albumin Urine Protein Urine Blood 11/28/16 11/28/16 11/28/16 06:13 11:34 16:41 WBC RBC Hgb Hct RDW Plt Count Neutrophils # Sodium 116 L* Potassium Chloride 84 L BUN 47 H Creatinine 1.60 H Glucose 143 H POC Glucose (mg/dL) 144 H 181 H Hemoglobin A1c Calcium Magnesium Alkaline Phosphatase CK-MB (CK-2) Total Protein Albumin Urine Protein Urine Blood 11/28/16 11/28/16 11/28/16 18:30 22:00 22:11 WBC RBC Hgb Hct RDW Plt Count Neutrophils # Sodium 116 L* Potassium Chloride 86 L BUN 51 H Creatinine 1.61 H Glucose POC Glucose (mg/dL) 174 H Hemoglobin A1c Calcium 8.2 L Magnesium Alkaline Phosphatase CK-MB (CK-2) Total Protein Albumin Urine Protein Trace H Urine Blood Small H 11/28/16 11/29/16 11/29/16 23:56 04:21 04:21 WBC 15.4 H RBC 3.86 L Hgb 12.0 L Hct 36.8 L RDW 15.8 H Plt Count 473 H Neutrophils # 11.4 H Sodium 118 L* 119 L* Potassium 5.5 H Chloride 87 L 89 L BUN 52 H 51 H Creatinine 1.60 H 1.50 H Glucose 104 H 120 H POC Glucose (mg/dL) Hemoglobin A1c Calcium Magnesium 1.5 L Alkaline Phosphatase CK-MB (CK-2) Total Protein Albumin Urine Protein Urine Blood 11/29/16 11/29/16 07:45 08:09 WBC RBC Hgb Hct RDW Plt Count Neutrophils # Sodium 123 L Potassium Chloride BUN Creatinine Glucose POC Glucose (mg/dL) 137 H Hemoglobin A1c Calcium Magnesium Alkaline Phosphatase CK-MB (CK-2) Total Protein Albumin Urine Protein Urine Blood - Diagnostic Findings Chest x-ray: image reviewed Assessment and Plan Plan: Assessment 1 acute CHF exacerbation with secondary shortness of breath. Patient has concentric LVH, EF is 45-50%. 2 hyponatremia, multifactorial, improving with 3% saline solution in addition to Lasix. 3 coronary artery disease 4 chronic renal failure 5 hypertension for an acute hypertensive crisis at time of admission, improved 6 hyperlipidemia 7 hypothyroidism 8 DVT maintained on Eliquis for anticoagulation 9 chronic gout. Plan Monitor the sodium. Continue diuretics. We'll allow some further increase in sodium level and subsequently we'll stop the hypertonic saline solution. Restrict IV fluids and maintain a 1.5 L of daily fluid intake with low-salt diet. Continue diuretics. Monitor renal function. Follow-up chest x-ray in a.m. Wean off FiO2 as tolerated. We'll continue to follow.
[2016-11-29 12:27] LABS: Glucose,Whole Blood 129 mg/dL (75-99)
[2016-11-29 17:13] LABS: Glucose,Whole Blood 93 mg/dL (75-99)
[2016-11-29 20:42] LABS: Glucose,Whole Blood 175 mg/dL (75-99)
--- NOTE | 2016-11-29 21:13 | P.PN ---
Subjective Principal diagnosis: Congestive heart failure, hyponatremia and mild cardiomyopathy. Renal failure This patient was admitted with increasing shortness of breath and evidence of CHF. Patient also had severe hyponatremia. Patient was transferred to intensive care unit and was given 3% normal saline at 50 mL an hour. Patient continued on IV Lasix 80 mg twice a day. Today's sodium is 122. Patient continues to IV 3% saline. His chest x-ray shows stable findings of mild CHF. Overall, patient seemed to be stable. His creatinine is about 1.6. Patient is also being followed by pulmonology and nephrology Objective - Vital Signs Vital signs: Vital Signs Temp 97.6 F 11/29/16 16:00 Pulse 76 11/29/16 19:00 Resp 24 11/29/16 19:00 BP 156/53 11/29/16 19:00 Pulse Ox 99 11/29/16 19:00 Intake & Output 11/29/16 11/29/16 11/30/16 06:59 18:59 06:59 Intake Total 800 1590 Output Total 3085 2185 150 Balance -2285 -595 -150 Weight 103.6 kg Intake: IV 240 Magnesium Sulfate-D5w Pmx 200 1 gm In Dextrose/Water 1 100ml.bag @ 100 mls/hr IVPB Q1H [facility] Rx#: [id number] Sodium Chloride 3%( 40 Hypertonic) 500 ml @ 40 mls/hr IV .[id number] [facility] Rx #:[id number] Intake, IV Titration 500 Amount Sodium Chloride 3%( 500 Hypertonic) 500 ml @ 40 mls/hr IV .[id number] [facility] Rx #:[id number] Oral 300 1350 Output: Urine 3085 2185 150 Other: Voiding Method Indwelling Catheter Indwelling Catheter - Exam GENERAL EXAM: Patient is alert and doesn't appear to be in acute distress HEENT: Normocephalic. Normal reaction of pupils, equal size, normal range of extraocular motion. No erythema or exudates in the throat. NECK: No masses, no nuchal rigidity. CHEST: No chest wall deformity. LUNGS: Diminished breath sounds at bases HEART: S1 and S2 normal with no audible mumurs or gallops. Regular rhythm, femorals equal on both sides.. ABDOMEN: No hepatosplenomegaly, normal bowel sounds, no guarding or rigidity. SKIN: No rashes CENTRAL NERVOUS SYSTEM: No focal deficits. EXTREMITIES: Mild edema - Labs CBC & Chem 7: 11/29/16 04:21 11/29/16 16:27 Labs: Abnormal Lab Results - Last 24 Hours (Table) 11/28/16 11/28/16 11/28/16 Range/Units 22:00 22:11 23:56 WBC (3.8-10.6) k/uL RBC (4.30-5.90) m/uL Hgb (13.0-17.5) gm/dL Hct (39.0-53.0) % RDW (11.5-15.5) % Plt Count (150-450) k/uL Neutrophils # (1.3-7.7) k/uL Sodium 116 L* 118 L* (137-145) mmol/L Potassium 5.5 H (3.5-5.1) mmol/L Chloride 86 L 87 L (98-107) mmol/L BUN 51 H 52 H (9-20) mg/dL Creatinine 1.61 H 1.60 H (0.66-1.25) mg/dL Glucose 104 H (74-99) mg/dL POC Glucose (mg/dL) (75-99) mg/dL Calcium 8.2 L (8.4-10.2) mg/dL Magnesium (1.6-2.3) mg/dL Urine Protein Trace H (Negative) Urine Blood Small H (Negative) 11/29/16 11/29/16 11/29/16 Range/Units 04:21 04:21 07:45 WBC 15.4 H (3.8-10.6) k/uL RBC 3.86 L (4.30-5.90) m/uL Hgb 12.0 L (13.0-17.5) gm/dL Hct 36.8 L (39.0-53.0) % RDW 15.8 H (11.5-15.5) % Plt Count 473 H (150-450) k/uL Neutrophils # 11.4 H (1.3-7.7) k/uL Sodium 119 L* (137-145) mmol/L Potassium (3.5-5.1) mmol/L Chloride 89 L (98-107) mmol/L BUN 51 H (9-20) mg/dL Creatinine 1.50 H (0.66-1.25) mg/dL Glucose 120 H (74-99) mg/dL POC Glucose (mg/dL) 137 H (75-99) mg/dL Calcium (8.4-10.2) mg/dL Magnesium 1.5 L (1.6-2.3) mg/dL Urine Protein (Negative) Urine Blood (Negative) 11/29/16 11/29/16 11/29/16 Range/Units 08:09 12:25 16:27 WBC (3.8-10.6) k/uL RBC (4.30-5.90) m/uL Hgb (13.0-17.5) gm/dL Hct (39.0-53.0) % RDW (11.5-15.5) % Plt Count (150-450) k/uL Neutrophils # (1.3-7.7) k/uL Sodium 123 L 122 L (137-145) mmol/L Potassium (3.5-5.1) mmol/L Chloride (98-107) mmol/L BUN (9-20) mg/dL Creatinine (0.66-1.25) mg/dL Glucose (74-99) mg/dL POC Glucose (mg/dL) 129 H (75-99) mg/dL Calcium (8.4-10.2) mg/dL Magnesium (1.6-2.3) mg/dL Urine Protein (Negative) Urine Blood (Negative) 11/29/16 Range/Units 20:39 WBC (3.8-10.6) k/uL RBC (4.30-5.90) m/uL Hgb (13.0-17.5) gm/dL Hct (39.0-53.0) % RDW (11.5-15.5) % Plt Count (150-450) k/uL Neutrophils # (1.3-7.7) k/uL Sodium (137-145) mmol/L Potassium (3.5-5.1) mmol/L Chloride (98-107) mmol/L BUN (9-20) mg/dL Creatinine (0.66-1.25) mg/dL Glucose (74-99) mg/dL POC Glucose (mg/dL) 175 H (75-99) mg/dL Calcium (8.4-10.2) mg/dL Magnesium (1.6-2.3) mg/dL Urine Protein (Negative) Urine Blood (Negative) Microbiology - Last 24 Hours (Table) 11/28/16 22:00 Urine Culture - Preliminary Urine,Catheterized Assessment and Plan (1) Cardiomyopathy Status: Acute (2) Congestive heart failure Status: Acute (3) Hyponatremia Status: Acute (4) Renal failure Status: Acute Plan: Patient's sodium level improved slightly. Continue current management. Patient is diuresing well. Further recommendations depend upon the clinical course
[2016-11-30 00:01] LABS: Glucose,Whole Blood 85 mg/dL (75-99)
[2016-11-30] MEDS: INSULIN GLARGINE 100 UNIT/ML 10 ML VIAL SQ SCH (00:44)
[2016-11-30 04:58] LABS: Anisocytosis Slight; Basophils # (A) 0.1 k/uL (0-0.2); Basophils % (A) 1 %; CH 32.2; Eosinophils # (A) 0.7 k/uL (0-0.7); Eosinophils % (A) 5 %; HCT 35.9 % (39.0-53.0); HDW 2.88; HGB 11.4 gm/dL (13.0-17.5); Luc # (Auto) 0.26; Luc % (Auto) 2; Lymphocytes # (A) 1.9 k/uL (1.0-4.8); Lymphocytes % (A) 14 %; MCH 31.2 pg (25.0-35.0); MCHC 31.8 g/dL (31.0-37.0); MCV 98.2 fL (80.0-100.0); Macrocytosis Slight; Mean Platelet Volume 6.8; Monocytes % (A) 8 %; Neutrophils # (A) 9.7 k/uL (1.3-7.7); Neutrophils % (A) 71 %; RBC 3.66 m/uL (4.30-5.90); RDW 16.3 % (11.5-15.5); WBC 13.6 k/uL (3.8-10.6); WBC (Perox) 13.69
[2016-11-30 05:08] LABS: Calcium 8.5 mg/dL (8.4-10.2); Magnesium 1.8 mg/dL (1.6-2.3); Phosphorous 4.5 mg/dL (2.5-4.5); Potassium 5.5 mmol/L (3.5-5.1)
--- NOTE | 2016-11-30 07:41 | XR ---
EXAMINATION TYPE: XR chest 1V DATE OF EXAM: 11/30/2016 HISTORY: shortness of breath. REFERENCE: Previous study dated 11/29/2016. FINDINGS: There is bibasilar airspace disease either representing atelectasis or pneumonia. The heart is enlarged. There are small, bilateral effusions. IMPRESSION: 1. CARDIOMEGALY. 2. BIBASILAR AIRSPACE DISEASE. 3. SMALL, BILATERAL EFFUSIONS.
[2016-11-30 08:01] LABS: Glucose,Whole Blood 86 mg/dL (75-99)
[2016-11-30] MEDS ORDERED: hydrALAZINE HCL 20 MG/ML 1 ML VIAL IVP PRN (08:03)
[2016-11-30] MEDS ORDERED: TOLVAPTAN 15 MG 1/2 TABLET PO ONE ×2 (08:05→20:00)
--- NOTE | 2016-11-30 08:12 | P.PN ---
Subjective Patient is seen in follow-up for acute kidney injury on chronic kidney disease as well as hyponatremia. Sodium level is mildly improved and is 123 this morning. He is currently maintained on Lasix 80 mg IV twice daily. Renal function is also worse with creatinine at 2.1 today. He is diuresing well. His oral intake is good. No vomiting or diarrhea. Patient presented with dyspnea. He does of systolic CHF with ejection fraction of 45-50%. He has underlying chronic kidney disease stage III with baseline creatinine in the range of 1.3-1.6 secondary to diabetic kidney disease and cardiorenal syndrome. Vital signs are stable. General: The patient appeared well nourished and normally developed. HEENT: Head exam is unremarkable. Neck is without jugular venous distension. LUNGS: Scattered rhonchi. Breath sounds decreased. HEART: Rate and Rhythm are regular. First and second heart sounds normal. No murmurs, rubs or gallops. ABDOMEN: Abdominal exam reveals normal bowel sounds. Non-tender and non- distended. No evidence of peritonitis. EXTREMITITES: Trace edema. Objective - Vital Signs Vital signs: Vital Signs Temp 98 F 11/30/16 04:00 Pulse 64 11/30/16 06:00 Resp 10 L 11/30/16 06:00 BP 170/74 11/30/16 06:00 Pulse Ox 99 11/30/16 06:00 Intake & Output 11/29/16 11/30/16 11/30/16 18:59 06:59 18:59 Intake Total 1590 Output Total 2185 1960 Balance -595 -1959 Intake: IV 240 Magnesium Sulfate-D5w Pmx 200 1 gm In Dextrose/Water 1 100ml.bag @ 100 mls/hr IVPB Q1H [facility] Rx#: [id number] Sodium Chloride 3%( 40 Hypertonic) 500 ml @ 40 mls/hr IV .[id number] [facility] Rx #:[id number] Oral 1350 Output: Urine [id number] Other: Voiding Method Indwelling Catheter Indwelling Catheter - Labs CBC & Chem 7: 11/30/16 04:39 11/30/16 04:39 Labs: Abnormal Lab Results - Last 24 Hours (Table) 11/29/16 11/29/16 11/29/16 Range/Units 08:09 12:25 16:27 WBC (3.8-10.6) k/uL RBC (4.30-5.90) m/uL Hgb (13.0-17.5) gm/dL Hct (39.0-53.0) % RDW (11.5-15.5) % Plt Count (150-450) k/uL Neutrophils # (1.3-7.7) k/uL Sodium 123 L 122 L (137-145) mmol/L Potassium (3.5-5.1) mmol/L Chloride (98-107) mmol/L BUN (9-20) mg/dL Creatinine (0.66-1.25) mg/dL POC Glucose (mg/dL) 129 H (75-99) mg/dL 11/29/16 11/30/16 11/30/16 Range/Units 20:39 04:39 04:39 WBC 13.6 H (3.8-10.6) k/uL RBC 3.66 L (4.30-5.90) m/uL Hgb 11.4 L (13.0-17.5) gm/dL Hct 35.9 L (39.0-53.0) % RDW 16.3 H (11.5-15.5) % Plt Count 502 H (150-450) k/uL Neutrophils # 9.7 H (1.3-7.7) k/uL Sodium 123 L (137-145) mmol/L Potassium 5.5 H (3.5-5.1) mmol/L Chloride 90 L (98-107) mmol/L BUN 62 H (9-20) mg/dL Creatinine 2.10 H (0.66-1.25) mg/dL POC Glucose (mg/dL) 175 H (75-99) mg/dL Microbiology - Last 24 Hours (Table) 11/28/16 22:00 Urine Culture - Preliminary Urine,Catheterized Assessment and Plan Plan: Assessment: #1. Hypervolemic hyponatremia secondary to CHF exacerbation. Sodium level stable at 123 this morning. #2. Chronic kidney disease stage III secondary to cardiorenal syndrome and mild component of diabetic kidney disease. Baseline creatinine in the range of 1.3-1.6. #3. Systolic CHF with ejection fraction of 45-50%. #4. Volume overload. Improving. #5. Insulin-dependent diabetes mellitus. #6. Nonoliguric acute kidney injury mostly prerenal from diuresis. Creatinine up to 2.1 today. Plan: Maintain 1.5 L fluid restriction and low-salt diet. Continue with Lasix 80 mg IV twice daily. Tolvaptan 15 mg once now. Repeat sodium level at 5 PM today. Avoid nephrotoxic agents and hypotensive episodes. Continue to monitor renal function and urine output. May need to decrease diuretics starting tomorrow.
--- NOTE | 2016-11-30 08:32 | PN ---
CHIEF COMPLAINT: Congestive heart failure and Hyponatremia. HISTORY OF PRESENT ILLNESS: This gentlemans sodium started to come up after being started on 3% Sodium chloride. REVIEW OF SYSTEMS: He states he feels fine. He is not having any shortness of breath or nausea. PHYSICAL EXAMINATION: He is alert and oriented. Chest is clear. Cardiac exam is unchanged. The abdomen is protuberant. IMPRESSION: 1. Congestive heart failure. 2. Uncontrolled diabetes. 3. Renal failure. 4. Hyponatremia. PLAN: Continue with 3% sodium chloride. He can probably be transferred out to telemetry today. JAVI
[2016-11-30] MEDS: CARVEDILOL 6.25 MG TAB PO SCH ×2 (08:58→18:07)
[2016-11-30] MEDS: LEVOTHYROXINE 50 MCG TAB PO SCH (08:58)
[2016-11-30] MEDS: FAMOTIDINE 20 MG TAB PO SCH (08:58)
[2016-11-30] MEDS: FUROSEMIDE 10 MG/ML 10 ML VIAL IV SCH ×2 (08:59→20:15)
[2016-11-30] MEDS: INSULIN LISPRO (humaLOG) 300 UNIT/3 ML VIAL SQ SCH ×7 (08:59→21:30)
[2016-11-30] MEDS: SPIRONOLACTONE 25 MG TAB PO SCH (09:01)
[2016-11-30] MEDS: MUPIROCIN 2% OINT 22 GM TUBE TOPICAL SCH ×2 (09:01→20:15)
[2016-11-30] MEDS: LISINOPRIL 20 MG TAB PO SCH (09:02)
[2016-11-30] MEDS: APIXABAN 2.5 MG TABLET PO SCH ×2 (09:02→20:15)
[2016-11-30] MEDS: FERROUS SULFATE 325 MG TAB PO SCH (09:02)
[2016-11-30] MEDS: ASPIRIN 81 MG CHEW PO SCH (09:02)
[2016-11-30] MEDS: ALLOPURINOL 300 MG TAB PO SCH (09:02)
[2016-11-30 12:24] LABS: Glucose,Whole Blood 131 mg/dL (75-99)
--- NOTE | 2016-11-30 14:25 | P.PN ---
Subjective A very pleasant 81-year-old male patient, , with known history of congestion heart failure, coronary artery disease and previous coronary intervention/stent insertion in addition to history of diabetes, hypertension and chronic renal failure with previous history of a right lower extremity DVT and chronic venous ulcerations in the legs bilaterally with been followed up at the [facility]. The patient came in for worsening shortness of breath, fluid overload and hyponatremia. At the time of admission his blood pressure was quite elevated in addition. Apparently the patient was taken off the blood pressure medication and diuretics and he came into the hospital because of a worsening shortness of breath and leg edema and he was also found to be hyponatremic. His initial sodium was in the 160 range. He was given normal saline and diuretics without much improvement. Yesterday, the patient was started on 3% normal saline by nephrology and he got moved to the intensive care unit. Diuretics was also continued. This resulted to some slow recovery and his sodium level which is up to 123. Renal function is stable with a creatinine of 1.5-1.6. A follow-up sodium level is pending. Meanwhile the patient is on Lasix 80 mg IV push every 12 hours and 3% hypertonic saline today to 50 mL an hour. Chest x-ray is showing mild central vascular congestion and left hilar infiltrate/edema with possible atelectasis of the left lung base. No significant interval change compared to yesterday. The patient is seen again today 11/30/2016 in follow-up in the intensive care unit. He is currently sitting up in chair at the bedside. He is awake and alert in no acute distress. Eyes any worsening shortness of breath cough or congestion. He denies any dizziness or lightheadedness. He states he is feeling stronger today as compared to yesterday. His current sodium level is 123, creatinine 2.10. Potassium 5.5. He does remain off the 3% sodium chloride IV. He was given a one-time dose of Samsca today. He remains on Lasix 80 mg IV every 12 hours. He is maintaining good O2 saturations in the high 90s on 2 L/m. Urine culture reveals no growth to date. Objective - Vital Signs Vital signs: Vital Signs Temp 97.7 F 11/30/16 12:00 Pulse 62 11/30/16 14:00 Resp 21 11/30/16 14:00 BP 128/63 11/30/16 14:00 Pulse Ox 97 11/30/16 14:00 Intake & Output 11/29/16 11/30/16 11/30/16 18:59 06:59 18:59 Intake Total 1590 180 Output Total 2181959 790 Balance -595 -1960 -610 Weight 103.6 kg Intake: IV 240 Magnesium Sulfate-D5w Pmx 200 1 gm In Dextrose/Water 1 100ml.bag @ 100 mls/hr IVPB Q1H [facility] Rx#: [id number] Sodium Chloride 3%( 40 Hypertonic) 500 ml @ 40 mls/hr IV .[id number] [facility] Rx #:[id number] Oral 1350 180 Output: Urine 2184 1960 790 Other: Voiding Method Indwelling Catheter Indwelling Catheter Indwelling Catheter - Exam Head exam was generally normal. There was no scleral icterus or corneal arcus. Mucous membranes were moist. Neck is short and supple there is significant crowding of the posterior oropharynx. No neck stiffness.Neck was supple and without jugular venous distension, thyromegaly, or carotid bruits. Carotids were easily palpable bilaterally. There was no adenopathy. Lung sounds are diminished bilaterally along with some bibasilar crackles in lung bases.Cardiac exam revealed the PMI to be normally situated and sized. The rhythm was regular and no extrasystoles were noted during several minutes of auscultation. The first and second heart sounds were normal and physiologic splitting of the second heart sound was noted. There were no murmurs, rubs, clicks, or gallops. Abdomen is slightly distended soft. No direct tenderness. No rebound tenderness or guarding. Extremities reveal +1 pitting edema and there is no cyanosis or clubbing. Evidence of chronic venous ulceration lower extremities bilaterally. - Labs CBC & Chem 7: 11/30/16 04:39 11/30/16 04:39 Labs: Abnormal Lab Results - Last 24 Hours (Table) 11/29/16 11/29/16 11/30/16 Range/Units 16:27 20:39 04:39 WBC 13.6 H (3.8-10.6) k/uL RBC 3.66 L (4.30-5.90) m/uL Hgb 11.4 L (13.0-17.5) gm/dL Hct 35.9 L (39.0-53.0) % RDW 16.3 H (11.5-15.5) % Plt Count 502 H (150-450) k/uL Neutrophils # 9.7 H (1.3-7.7) k/uL Sodium 122 L (137-145) mmol/L Potassium (3.5-5.1) mmol/L Chloride (98-107) mmol/L BUN (9-20) mg/dL Creatinine (0.66-1.25) mg/dL POC Glucose (mg/dL) 175 H (75-99) mg/dL 11/30/16 11/30/16 Range/Units 04:39 12:22 WBC (3.8-10.6) k/uL RBC (4.30-5.90) m/uL Hgb (13.0-17.5) gm/dL Hct (39.0-53.0) % RDW (11.5-15.5) % Plt Count (150-450) k/uL Neutrophils # (1.3-7.7) k/uL Sodium 123 L (137-145) mmol/L Potassium 5.5 H (3.5-5.1) mmol/L Chloride 90 L (98-107) mmol/L BUN 62 H (9-20) mg/dL Creatinine 2.10 H (0.66-1.25) mg/dL POC Glucose (mg/dL) 131 H (75-99) mg/dL Microbiology - Last 24 Hours (Table) 11/28/16 22:00 Urine Culture - Final Urine,Catheterized Assessment and Plan Plan: Assessment 1 acute CHF exacerbation with secondary shortness of breath. Patient has concentric LVH, EF is 45-50%. 2 hyponatremia, multifactorial, improved with 3% saline solution in addition to Lasix. 3 coronary artery disease 4 chronic renal failure 5 hypertension for an acute hypertensive crisis at time of admission, improved 6 hyperlipidemia 7 hypothyroidism 8 DVT maintained on Eliquis for anticoagulation 9 chronic gout. Plan The patient was seen and evaluated by Dr. Grey. His chest x-ray and labs were reviewed. He is cleared for discharge from the intensive care unit. The plan is for repeat sodium level this afternoon. He was given 1 dose of Samsca. Remains on IV Lasix 80 mg twice a day. He remains on 1.5 L of fluid restriction as well. We'll increase his activity as tolerated. We'll continue to follow.
--- NOTE | 2016-11-30 15:01 | P.PN ---
Subjective Principal diagnosis: Congestive heart failure, hyponatremia and mild cardiomyopathy. Renal failure This patient seemed to be clinically feeling okay. His sodium is up to 123. Doesn't appear to be in acute distress. However, his creatinine has gone up to 2.1. Patient was seen by Dr. Wang and he recommended that we continue same fluid restriction and IV Lasix. Patient activity, to be increased as tolerated Objective - Vital Signs Vital signs: Vital Signs Temp 97.7 F 11/30/16 12:00 Pulse 62 11/30/16 14:00 Resp 21 11/30/16 14:00 BP 128/63 11/30/16 14:00 Pulse Ox 97 11/30/16 14:00 Intake & Output 11/29/16 11/30/16 11/30/16 18:59 06:59 18:59 Intake Total 1590 180 Output Total 2185 1960 790 Balance -595 -1960 -610 Weight 103.6 kg Intake: IV 240 Magnesium Sulfate-D5w Pmx 200 1 gm In Dextrose/Water 1 100ml.bag @ 100 mls/hr IVPB Q1H [facility] Rx#: [id number] Sodium Chloride 3%( 40 Hypertonic) 500 ml @ 40 mls/hr IV .[id number] [facility] Rx #:[id number] Oral 1350 180 Output: Urine 2187 1960 790 Other: Voiding Method Indwelling Catheter Indwelling Catheter Indwelling Catheter - Exam GENERAL EXAM: Patient is alert and doesn't appear to be in acute distress HEENT: Normocephalic. Normal reaction of pupils, equal size, normal range of extraocular motion. No erythema or exudates in the throat. NECK: No masses, no nuchal rigidity. CHEST: No chest wall deformity. LUNGS: Diminished breath sounds at bases HEART: S1 and S2 normal with no audible mumurs or gallops. Regular rhythm, femorals equal on both sides.. ABDOMEN: No hepatosplenomegaly, normal bowel sounds, no guarding or rigidity. SKIN: No rashes CENTRAL NERVOUS SYSTEM: No focal deficits. EXTREMITIES: Mild edema - Labs CBC & Chem 7: 11/30/16 04:39 11/30/16 04:39 Labs: Abnormal Lab Results - Last 24 Hours (Table) 11/29/16 11/29/16 11/30/16 Range/Units 16:27 20:39 04:39 WBC 13.6 H (3.8-10.6) k/uL RBC 3.66 L (4.30-5.90) m/uL Hgb 11.4 L (13.0-17.5) gm/dL Hct 35.9 L (39.0-53.0) % RDW 16.3 H (11.5-15.5) % Plt Count 502 H (150-450) k/uL Neutrophils # 9.7 H (1.3-7.7) k/uL Sodium 122 L (137-145) mmol/L Potassium (3.5-5.1) mmol/L Chloride (98-107) mmol/L BUN (9-20) mg/dL Creatinine (0.66-1.25) mg/dL POC Glucose (mg/dL) 175 H (75-99) mg/dL 11/30/16 11/30/16 Range/Units 04:39 12:22 WBC (3.8-10.6) k/uL RBC (4.30-5.90) m/uL Hgb (13.0-17.5) gm/dL Hct (39.0-53.0) % RDW (11.5-15.5) % Plt Count (150-450) k/uL Neutrophils # (1.3-7.7) k/uL Sodium 123 L (137-145) mmol/L Potassium 5.5 H (3.5-5.1) mmol/L Chloride 90 L (98-107) mmol/L BUN 62 H (9-20) mg/dL Creatinine 2.10 H (0.66-1.25) mg/dL POC Glucose (mg/dL) 131 H (75-99) mg/dL Microbiology - Last 24 Hours (Table) 11/28/16 22:00 Urine Culture - Final Urine,Catheterized Assessment and Plan (1) Cardiomyopathy Status: Acute (2) Congestive heart failure Status: Acute (3) Hyponatremia Status: Acute (4) Renal failure Status: Acute Plan: Continue current measures. Follow elect lites closely. Increase activity as tolerated. Further recommendation depending upon the clinical course.
--- NOTE | 2016-11-30 15:52 | PN ---
CHIEF COMPLAINT: Congestive heart failure and hyponatremia. HISTORY OF PRESENT ILLNESS: This gentleman seems to be doing fairly well and is stable. He has had no chest pain, shortness of breath, etc. PHYSICAL EXAM: Breath sounds are quite good. There are a few rales at the bases. The cardiac exam is normal. Abdomen is soft and protuberant. IMPRESSION: 1. Congestive heart failure. 2. Uncontrolled diabetes. 3. Hyponatremia. 4. Renal failure. PLAN: Continue on current program. He can be moved out of ICU when a step-down bed is available. JAVI
[2016-11-30 16:45] LABS: Glucose,Whole Blood 96 mg/dL (75-99)
[2016-11-30 21:06] LABS: Glucose,Whole Blood 140 mg/dL (75-99)
[2016-12-01 02:53] LABS: Glucose,Whole Blood 297 mg/dL (75-99)
[2016-12-01 07:06] LABS: Glucose,Whole Blood 225 mg/dL (75-99)
[2016-12-01] MEDS: LEVOTHYROXINE 50 MCG TAB PO SCH (07:36)
[2016-12-01] MEDS: INSULIN LISPRO (humaLOG) 300 UNIT/3 ML VIAL SQ SCH ×7 (07:57→20:55)
[2016-12-01] MEDS: FUROSEMIDE 10 MG/ML 10 ML VIAL IV SCH ×2 (07:58→20:26)
[2016-12-01] MEDS: LISINOPRIL 20 MG TAB PO SCH (07:58)
[2016-12-01] MEDS: FERROUS SULFATE 325 MG TAB PO SCH (07:58)
[2016-12-01] MEDS: CARVEDILOL 6.25 MG TAB PO SCH ×2 (07:58→17:28)
[2016-12-01] MEDS: SPIRONOLACTONE 25 MG TAB PO SCH (07:58)
[2016-12-01] MEDS: ALLOPURINOL 300 MG TAB PO SCH (07:58)
[2016-12-01] MEDS: FAMOTIDINE 20 MG TAB PO SCH (07:58)
[2016-12-01] MEDS: ASPIRIN 81 MG CHEW PO SCH (07:58)
[2016-12-01] MEDS: APIXABAN 2.5 MG TABLET PO SCH ×2 (07:58→20:26)
[2016-12-01] MEDS: MUPIROCIN 2% OINT 22 GM TUBE TOPICAL SCH ×2 (07:59→20:27)
[2016-12-01 08:03] LABS: Anisocytosis Slight; Basophils # (A) 0.1 k/uL (0-0.2); Basophils % (A) 1 %; CH 32.3; Eosinophils # (A) 0.8 k/uL (0-0.7); Eosinophils % (A) 8 %; HCT 38.8 % (39.0-53.0); HGB 12.4 gm/dL (13.0-17.5); Luc % (Auto) 2; Lymphocytes # (A) 1.7 k/uL (1.0-4.8); Lymphocytes % (A) 17 %; MCH 31.4 pg (25.0-35.0); MCHC 31.9 g/dL (31.0-37.0); MCV 98.4 fL (80.0-100.0); Macrocytosis Slight; Mean Platelet Volume 7.4; Monocytes # (A) 0.8 k/uL (0-1.0); Monocytes % (A) 8 %; Neutrophils # (A) 6.5 k/uL (1.3-7.7); Neutrophils % (A) 64 %; RBC 3.95 m/uL (4.30-5.90); RDW 16.3 % (11.5-15.5); WBC 10.1 k/uL (3.8-10.6); WBC (Perox) 9.83
[2016-12-01 08:41] LABS: Calcium 8.8 mg/dL (8.4-10.2); Magnesium 1.9 mg/dL (1.6-2.3); Phosphorous 4.5 mg/dL (2.5-4.5); Potassium 5.3 mmol/L (3.5-5.1)
[2016-12-01 12:04] LABS: Glucose,Whole Blood 179 mg/dL (75-99)
--- NOTE | 2016-12-01 12:12 | P.PN ---
Subjective Principal diagnosis: Congestive heart failure, hyponatremia and mild cardiomyopathy. Renal failure This patient seemed to be clinically feeling okay. His sodium is up to 123. Doesn't appear to be in acute distress. However, his creatinine has gone up to 2.1. Patient was seen by Dr. Wang and he recommended that we continue same fluid restriction and IV Lasix. Patient activity, to be increased as tolerated. Patient is reevaluated on December 01. Patient is transferred to[address] [place] [id number]. He is off 3% normal saline. His sodium has come up to 1:30. His creatinine down to 1.9. He doesn't seem to be in acute distress. He seemed to presently confused and forgetful. Denies any chest pain. Complains of mild shortness of breath Objective - Vital Signs Vital signs: Vital Signs Temp 96.6 F L 12/01/16 07:00 Pulse 76 12/01/16 07:00 Resp 18 12/01/16 07:00 BP 199/81 12/01/16 07:00 Pulse Ox 95 12/01/16 07:00 Intake & Output 11/30/16 12/01/16 12/01/16 18:59 06:59 18:59 Intake Total 180 800 Output Total 790 6700 1000 Balance -610 -5900 -1000 Weight 103.6 kg Intake: Oral 180 800 Output: Urine 790 6700 1000 Uretheral (Brownlee) 4000 Other: Voiding Method Indwelling Catheter Indwelling Catheter Indwelling Catheter # Voids 1 # Bowel Movements 1 1 - Exam GENERAL EXAM: Patient is alert and doesn't appear to be in acute distress HEENT: Normocephalic. Normal reaction of pupils, equal size, normal range of extraocular motion. No erythema or exudates in the throat. NECK: No masses, no nuchal rigidity. CHEST: No chest wall deformity. LUNGS: Diminished breath sounds at bases HEART: S1 and S2 normal with no audible mumurs or gallops. Regular rhythm, femorals equal on both sides.. ABDOMEN: No hepatosplenomegaly, normal bowel sounds, no guarding or rigidity. SKIN: No rashes CENTRAL NERVOUS SYSTEM: No focal deficits. EXTREMITIES: Both legs are wrapped - Labs CBC & Chem 7: 12/01/16 07:43 12/01/16 07:43 Labs: Abnormal Lab Results - Last 24 Hours (Table) 11/30/16 11/30/1611/30/17 Range/Units 12:22 17:51 20:38 RBC (4.30-5.90) m/uL Hgb (13.0-17.5) gm/dL Hct (39.0-53.0) % RDW (11.5-15.5) % Plt Count (150-450) k/uL Eosinophils # (0-0.7) k/uL Sodium 124 L (137-145) mmol/L Potassium (3.5-5.1) mmol/L Chloride (98-107) mmol/L BUN (9-20) mg/dL Creatinine (0.66-1.25) mg/dL Glucose (74-99) mg/dL POC Glucose (mg/dL) 131 H 140 H (75-99) mg/dL 12/01/16 12/01/16 12/01/16 Range/Units 02:49 06:52 07:43 RBC 3.95 L (4.30-5.90) m/uL Hgb 12.4 L (13.0-17.5) gm/dL Hct 38.8 L (39.0-53.0) % RDW 16.3 H (11.5-15.5) % Plt Count 529 H (150-450) k/uL Eosinophils # 0.8 H (0-0.7) k/uL Sodium (137-145) mmol/L Potassium (3.5-5.1) mmol/L Chloride (98-107) mmol/L BUN (9-20) mg/dL Creatinine (0.66-1.25) mg/dL Glucose (74-99) mg/dL POC Glucose (mg/dL) 297 H 225 H (75-99) mg/dL 12/01/16 12/01/16 Range/Units 07:43 12:01 RBC (4.30-5.90) m/uL Hgb (13.0-17.5) gm/dL Hct (39.0-53.0) % RDW (11.5-15.5) % Plt Count (150-450) k/uL Eosinophils # (0-0.7) k/uL Sodium 130 L (137-145) mmol/L Potassium 5.3 H (3.5-5.1) mmol/L Chloride 93 L (98-107) mmol/L BUN 70 H (9-20) mg/dL Creatinine 1.90 H (0.66-1.25) mg/dL Glucose 190 H (74-99) mg/dL POC Glucose (mg/dL) 179 H (75-99) mg/dL Microbiology - Last 24 Hours (Table) 11/28/16 22:00 Urine Culture - Final Urine,Catheterized Assessment and Plan (1) Cardiomyopathy Status: Acute (2) Congestive heart failure Status: Acute (3) Hyponatremia Status: Acute (4) Renal failure Status: Acute Plan: Continue current management. Increase activity as tolerated. We'll be following him as needed
--- NOTE | 2016-12-01 14:02 | P.PN ---
Subjective A very pleasant 81-year-old male patient, , with known history of congestion heart failure, coronary artery disease and previous coronary intervention/stent insertion in addition to history of diabetes, hypertension and chronic renal failure with previous history of a right lower extremity DVT and chronic venous ulcerations in the legs bilaterally with been followed up at the [facility]. The patient came in for worsening shortness of breath, fluid overload and hyponatremia. At the time of admission his blood pressure was quite elevated in addition. Apparently the patient was taken off the blood pressure medication and diuretics and he came into the hospital because of a worsening shortness of breath and leg edema and he was also found to be hyponatremic. His initial sodium was in the 160 range. He was given normal saline and diuretics without much improvement. Yesterday, the patient was started on 3% normal saline by nephrology and he got moved to the intensive care unit. Diuretics was also continued. This resulted to some slow recovery and his sodium level which is up to 123. Renal function is stable with a creatinine of 1.5-1.6. A follow-up sodium level is pending. Meanwhile the patient is on Lasix 80 mg IV push every 12 hours and 3% hypertonic saline today to 50 mL an hour. Chest x-ray is showing mild central vascular congestion and left hilar infiltrate/edema with possible atelectasis of the left lung base. No significant interval change compared to yesterday. The patient is seen again today 11/30/2016 in follow-up in the intensive care unit. He is currently sitting up in chair at the bedside. He is awake and alert in no acute distress. Eyes any worsening shortness of breath cough or congestion. He denies any dizziness or lightheadedness. He states he is feeling stronger today as compared to yesterday. His current sodium level is 123, creatinine 2.10. Potassium 5.5. He does remain off the 3% sodium chloride IV. He was given a one-time dose of Samsca today. He remains on Lasix 80 mg IV every 12 hours. He is maintaining good O2 saturations in the high 90s on 2 L/m. Urine culture reveals no growth to date. The patient is seen again today 12/01/2016 in follow-up on the regular medical floor. He is awake and alert in no acute distress. He denies any worsening shortness of breath, cough or congestion. He is maintaining good O2 saturations in the mid 90s on room air. No dizziness or lightheadedness. His sodium remained stable at 1:30. Creatinine 1.90, potassium 5.3. Objective - Vital Signs Vital signs: Vital Signs Temp 96.6 F L 12/01/16 07:00 Pulse 76 12/01/16 07:00 Resp 18 12/01/16 07:00 BP 199/81 12/01/16 07:00 Pulse Ox 95 12/01/16 07:00 Intake & Output 11/30/16 12/01/16 12/01/16 18:59 06:59 18:59 Intake Total 180 800 Output Total 790 6700 1000 Balance -610 -5900 -1000 Weight 103.6 kg Intake: Oral 180 800 Output: Urine 790 6700 1000 Uretheral (Brownlee) 4000 Other: Voiding Method Indwelling Catheter Indwelling Catheter Indwelling Catheter # Voids 1 # Bowel Movements 1 1 - Exam Head exam was generally normal. There was no scleral icterus or corneal arcus. Mucous membranes were moist. Neck is short and supple there is significant crowding of the posterior oropharynx. No neck stiffness.Neck was supple and without jugular venous distension, thyromegaly, or carotid bruits. Carotids were easily palpable bilaterally. There was no adenopathy. Lung sounds are diminished bilaterally along with some bibasilar crackles in lung bases.Cardiac exam revealed the PMI to be normally situated and sized. The rhythm was regular and no extrasystoles were noted during several minutes of auscultation. The first and second heart sounds were normal and physiologic splitting of the second heart sound was noted. There were no murmurs, rubs, clicks, or gallops. Abdomen is slightly distended soft. No direct tenderness. No rebound tenderness or guarding. Extremities reveal +1 pitting edema and there is no cyanosis or clubbing. Evidence of chronic venous ulceration lower extremities bilaterally. - Labs CBC & Chem 7: 12/01/16 07:43 12/01/16 07:43 Labs: Abnormal Lab Results - Last 24 Hours (Table) 11/30/16 11/30/16 12/01/16 Range/Units 17:51 20:38 02:49 RBC (4.30-5.90) m/uL Hgb (13.0-17.5) gm/dL Hct (39.0-53.0) % RDW (11.5-15.5) % Plt Count (150-450) k/uL Eosinophils # (0-0.7) k/uL Sodium 124 L (137-145) mmol/L Potassium (3.5-5.1) mmol/L Chloride (98-107) mmol/L BUN (9-20) mg/dL Creatinine (0.66-1.25) mg/dL Glucose (74-99) mg/dL POC Glucose (mg/dL) 140 H 297 H (75-99) mg/dL 12/01/16 12/01/16 12/01/16 Range/Units 06:52 07:43 07:43 RBC 3.95 L (4.30-5.90) m/uL Hgb 12.4 L (13.0-17.5) gm/dL Hct 38.8 L (39.0-53.0) % RDW 16.3 H (11.5-15.5) % Plt Count 529 H (150-450) k/uL Eosinophils # 0.8 H (0-0.7) k/uL Sodium 130 L (137-145) mmol/L Potassium 5.3 H (3.5-5.1) mmol/L Chloride 93 L (98-107) mmol/L BUN 70 H (9-20) mg/dL Creatinine 1.90 H (0.66-1.25) mg/dL Glucose 190 H (74-99) mg/dL POC Glucose (mg/dL) 225 H (75-99) mg/dL 12/01/16 Range/Units 12:01 RBC (4.30-5.90) m/uL Hgb (13.0-17.5) gm/dL Hct (39.0-53.0) % RDW (11.5-15.5) % Plt Count (150-450) k/uL Eosinophils # (0-0.7) k/uL Sodium (137-145) mmol/L Potassium (3.5-5.1) mmol/L Chloride (98-107) mmol/L BUN (9-20) mg/dL Creatinine (0.66-1.25) mg/dL Glucose (74-99) mg/dL POC Glucose (mg/dL) 179 H (75-99) mg/dL Microbiology - Last 24 Hours (Table) 11/28/16 22:00 Urine Culture - Final Urine,Catheterized Assessment and Plan Plan: Assessment 1 acute CHF exacerbation with secondary shortness of breath. Patient has concentric LVH, EF is 45-50%. 2 hyponatremia, multifactorial, improved with 3% saline solution in addition to Lasix. Improved. 3 coronary artery disease 4 chronic renal failure 5 hypertension for an acute hypertensive crisis at time of admission, improved 6 hyperlipidemia 7 hypothyroidism 8 DVT maintained on Eliquis for anticoagulation 9 chronic gout. Plan The patient was seen and evaluated by Dr. Rene. We will continue with his current medications. We'll increase his activity as tolerated. We will follow on as-needed basis.
[2016-12-01 17:10] LABS: Glucose,Whole Blood 127 mg/dL (75-99)
[2016-12-01 20:43] LABS: Glucose,Whole Blood 281 mg/dL (75-99)
[2016-12-02] MEDS: LEVOTHYROXINE 50 MCG TAB PO SCH (06:39)
[2016-12-02 07:34] LABS: Glucose,Whole Blood 250 mg/dL (75-99)
[2016-12-02] MEDS: CARVEDILOL 6.25 MG TAB PO SCH ×2 (07:38→15:03)
[2016-12-02] MEDS: INSULIN LISPRO (humaLOG) 300 UNIT/3 ML VIAL SQ SCH ×7 (07:38→22:11)
[2016-12-02] MEDS: ALLOPURINOL 300 MG TAB PO SCH (07:38)
[2016-12-02] MEDS: SPIRONOLACTONE 25 MG TAB PO SCH (07:38)
[2016-12-02] MEDS: FUROSEMIDE 10 MG/ML 10 ML VIAL IV SCH (07:39)
[2016-12-02] MEDS: FAMOTIDINE 20 MG TAB PO SCH (07:39)
[2016-12-02] MEDS: MUPIROCIN 2% OINT 22 GM TUBE TOPICAL SCH ×2 (07:39→22:13)
[2016-12-02] MEDS: LISINOPRIL 20 MG TAB PO SCH (07:39)
[2016-12-02] MEDS: FERROUS SULFATE 325 MG TAB PO SCH (07:39)
[2016-12-02] MEDS: APIXABAN 2.5 MG TABLET PO SCH ×2 (07:39→22:12)
[2016-12-02] MEDS: ASPIRIN 81 MG CHEW PO SCH (07:39)
--- NOTE | 2016-12-02 10:02 | PN ---
DATE OF SERVICE: 12/01/2016 CHIEF COMPLAINT: Congestive heart failure, hyponatremia and renal failure. HISTORY OF PRESENT ILLNESS: This gentleman is feeling well and numbers are improving. His sodium is in the mid 20s now. Sugars are under reasonable control. PHYSICAL EXAM: HEENT is normal. Chest is clear. The cardiac exam is normal and the abdomen is soft and nontender. IMPRESSION: 1. Acute congestive heart failure. 2. Chronic congestive heart failure. 3. Atherosclerotic cardiovascular disease. 4. Renal failure. 5. Electrolyte imbalance. PLAN: Continue his IV fluids and efforts to control diabetes while watching his renal function. He may require rehab after his hospitalization. JAVI
--- NOTE | 2016-12-02 10:40 | PN ---
Patient is seen for follow up for hyponatremia which appears to be hypervolemic and improving. Patient also has chronic kidney disease. He is currently comfortable, laying in bed, not in any acute distress. Blood pressure is 126/70, heart rate 78 per minute, he is afebrile. HEART: S1/S2. LUNGS: Bilateral breath sounds are heard. ABDOMEN: Soft, nontender, obese. LOWER EXTREMITIES: Show both extremities to be wrapped. 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 LABS: From yesterday potassium was 5.3, sodium 130, serum creatinine 1.9 mg/dl , BUN 70. ASSESSMENT: 1. Chronic kidney disease, NKF stage 3 secondary to diabetic kidney disease and cardiorenal syndrome with baseline creatinine about 1.3-1.6 mg/dl 2. Hypervolemic hyponatremia, currently improving with diuresis. 3. Systolic heart failure with ejection fraction 45-50%. 4. Volume overload, currently improved. 5. Mild hyperkalemia, expect improvement with diuresis. Will repeat labs today. PLAN: Check labs today. Continue with IV Lasix for one more day. Can discharge the patient tomorrow on oral diuretics. We may need to decrease the RADHA/Aldactone depending on the repeat potassium from today. MTDD
[2016-12-02 11:15] LABS: Calcium 8.7 mg/dL (8.4-10.2); Potassium 4.8 mmol/L (3.5-5.1)
[2016-12-02 12:12] LABS: Glucose,Whole Blood 284 mg/dL (75-99)
--- NOTE | 2016-12-02 12:17 | P.PN ---
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 center. The patient came in for worsening shortness of breath, fluid overload and hyponatremia. At the time of admission his blood pressure was quite elevated in addition. Apparently the patient was taken off the blood pressure medication and diuretics and he came into the hospital because of a worsening shortness of breath and leg edema and he was also found to be hyponatremic. His initial sodium was in the 160 range. He was given normal saline and diuretics without much improvement. Yesterday, the patient was started on 3% normal saline by nephrology and he got moved to the intensive care unit. Diuretics was also continued. This resulted to some slow recovery and his sodium level which is up to 123. Renal function is stable with a creatinine of 1.5-1.6. A follow-up sodium level is pending. Meanwhile the patient is on Lasix 80 mg IV push every 12 hours and 3% hypertonic saline today to 50 mL an hour. Chest x-ray is showing mild central vascular congestion and left hilar infiltrate/edema with possible atelectasis of the left lung base. No significant interval change compared to yesterday. The patient is seen again today 11/30/2016 in follow-up in the intensive care unit. He is currently sitting up in chair at the bedside. He is awake and alert in no acute distress. Eyes any worsening shortness of breath cough or congestion. He denies any dizziness or lightheadedness. He states he is feeling stronger today as compared to yesterday. His current sodium level is 123, creatinine 2.10. Potassium 5.5. He does remain off the 3% sodium chloride IV. He was given a one-time dose of Samsca today. He remains on Lasix 80 mg IV every 12 hours. He is maintaining good O2 saturations in the high 90s on 2 L/m. Urine culture reveals no growth to date. The patient is seen again today 12/01/2016 in follow-up on the regular medical floor. He is awake and alert in no acute distress. He denies any worsening shortness of breath, cough or congestion. He is maintaining good O2 saturations in the mid 90s on room air. No dizziness or lightheadedness. His sodium remained stable at 1:30. Creatinine 1.90, potassium 5.3. Reevaluated today on 12/02/2016, patient is doing well, in no form of respiratory distress. No cough no wheezing no shortness of breath. Labs were reviewed sodium is 133 however his BUN is up to 91 creatinine is 2.30, May have to consider cutting down on diuretics. Objective - Vital Signs Vital signs: Vital Signs Temp 97.0 F L 12/02/16 07:00 Pulse 78 12/02/16 07:00 Resp 16 12/02/16 07:00 BP 126/70 12/02/16 07:00 Pulse Ox 96 12/02/16 07:00 Intake & Output 12/01/16 12/02/16 12/02/16 18:59 06:59 18:59 Intake Total 400 Output Total 2600 3000 600 Balance -2600 -2600 -600 Intake: Oral 400 Output: Urine 2600 3000 600 Uretheral ([place]lee) 2200 600 Other: Voiding Method Indwelling Catheter Indwelling Catheter Indwelling Catheter # Voids 1 # Bowel Movements 0 - Exam Head exam was generally normal. There was no scleral icterus or corneal arcus. Mucous membranes were moist. Neck is short and supple there is significant crowding of the posterior oropharynx. No neck stiffness.Neck was supple and without jugular venous distension, thyromegaly, or carotid bruits. Carotids were easily palpable bilaterally. There was no adenopathy. Lung sounds are diminished bilaterally along with some bibasilar crackles in lung bases.Cardiac exam revealed the PMI to be normally situated and sized. The rhythm was regular and no extrasystoles were noted during several minutes of auscultation. The first and second heart sounds were normal and physiologic splitting of the second heart sound was noted. There were no murmurs, rubs, clicks, or gallops. Abdomen is slightly distended soft. No direct tenderness. No rebound tenderness or guarding. Extremities reveal +1 pitting edema and there is no cyanosis or clubbing. Evidence of chronic venous ulceration lower extremities bilaterally. - Labs CBC & Chem 7: 12/01/16 07:43 12/02/16 10:20 Labs: Abnormal Lab Results - Last 24 Hours (Table) 12/01/16 12/01/16 12/02/16 Range/Units 17:08 20:37 07:22 Sodium (137-145) mmol/L Chloride (98-107) mmol/L BUN (9-20) mg/dL Creatinine (0.66-1.25) mg/dL Glucose (74-99) mg/dL POC Glucose (mg/dL) 127 H 281 H 250 H (75-99) mg/dL 12/02/16 12/02/16 Range/Units 10:20 12:04 Sodium 133 L (137-145) mmol/L Chloride 96 L (98-107) mmol/L BUN 91 H* (9-20) mg/dL Creatinine 2.30 H (0.66-1.25) mg/dL Glucose 289 H (74-99) mg/dL POC Glucose (mg/dL) 284 H (75-99) mg/dL Assessment and Plan Plan: 1 acute CHF exacerbation with secondary shortness of breath. Patient has concentric LVH, EF is 45-50%. 2 hyponatremia, multifactorial, improved with 3% saline solution in addition to Lasix. Improved. 3 coronary artery disease 4 chronic renal failure 5 hypertension for an acute hypertensive crisis at time of admission, improved 6 hyperlipidemia 7 hypothyroidism 8 DVT maintained on Eliquis for anticoagulation 9 chronic gout. Recommendation: Continue present treatment plan, monitor electrolytes and monitor renal profile, consider cutting down on the dose of diuretics from 80 mg IV push every 12 hours to 40 mg IV push every 12 hours considering the worsening in his renal profile. We'll continue to follow. Time with Patient: Less than 30
[2016-12-02] MEDS: FUROSEMIDE 40 MG TAB PO SCH (15:03)
[2016-12-02 17:01] LABS: Glucose,Whole Blood 99 mg/dL (75-99)
[2016-12-02 21:32] LABS: Glucose,Whole Blood 215 mg/dL (75-99)
[2016-12-03] MEDS: LEVOTHYROXINE 50 MCG TAB PO SCH (06:33)
[2016-12-03 06:55] LABS: Glucose,Whole Blood 214 mg/dL (75-99)
[2016-12-03] MEDS: ALLOPURINOL 300 MG TAB PO SCH (08:15)
[2016-12-03] MEDS: FERROUS SULFATE 325 MG TAB PO SCH (08:15)
[2016-12-03] MEDS: LISINOPRIL 20 MG TAB PO SCH (08:15)
[2016-12-03] MEDS: FUROSEMIDE 40 MG TAB PO SCH (08:15)
[2016-12-03] MEDS: CARVEDILOL 6.25 MG TAB PO SCH (08:16)
[2016-12-03] MEDS: FAMOTIDINE 20 MG TAB PO SCH (08:16)
[2016-12-03] MEDS: ASPIRIN 81 MG CHEW PO SCH (08:16)
[2016-12-03] MEDS: SPIRONOLACTONE 25 MG TAB PO SCH (08:16)
[2016-12-03] MEDS: INSULIN LISPRO (humaLOG) 300 UNIT/3 ML VIAL SQ SCH ×4 (08:17→12:43)
[2016-12-03] MEDS: MUPIROCIN 2% OINT 22 GM TUBE TOPICAL SCH (09:32)
[2016-12-03] MEDS: APIXABAN 2.5 MG TABLET PO SCH (09:32)
--- NOTE | 2016-12-03 09:51 | P.PN ---
Subjective Patient is seen in follow-up for acute kidney injury on chronic kidney disease as well as hyponatremia. Sodium level was up to 133 yesterday. Dose of diuretics was decreased and is currently maintained on 40 mg orally twice daily. Admits to good urine output. His oral intake is good. No vomiting or diarrhea. Patient presented with dyspnea. He does of systolic CHF with ejection fraction of 45-50%. He has underlying chronic kidney disease stage III with baseline creatinine in the range of 1.3-1.6 secondary to diabetic kidney disease and cardiorenal syndrome. Vital signs are stable. General: The patient appeared well nourished and normally developed. HEENT: Head exam is unremarkable. Neck is without jugular venous distension. LUNGS: Scattered rhonchi. Breath sounds decreased. HEART: Rate and Rhythm are regular. First and second heart sounds normal. No murmurs, rubs or gallops. ABDOMEN: Abdominal exam reveals normal bowel sounds. Non-tender and non- distended. No evidence of peritonitis. EXTREMITITES: Trace edema. Objective - Vital Signs Vital signs: Vital Signs Temp 96.9 F L 12/03/16 07:00 Pulse 84 12/03/16 07:00 Resp 16 12/03/16 07:00 BP 132/66 12/03/16 07:00 Pulse Ox 97 12/03/16 07:00 Intake & Output 12/02/16 12/03/16 12/03/16 18:59 06:59 18:59 Intake Total 240 320 Output Total 600 400 450 Balance -600 -160 -130 Intake: Oral 240 320 Output: Urine 600 400 450 Uretheral ([place]lee) 600 Other: Voiding Method Urinal Urinal # Voids 1 1 # Bowel Movements 0 1 - Labs CBC & Chem 7: 12/01/16 07:43 12/02/16 10:20 Labs: Abnormal Lab Results - Last 24 Hours (Table) 12/02/16 12/02/16 12/02/16 Range/Units 10:20 12:04 21:25 Sodium 133 L (137-145) mmol/L Chloride 96 L (98-107) mmol/L BUN 91 H* (9-20) mg/dL Creatinine 2.30 H (0.66-1.25) mg/dL Glucose 289 H (74-99) mg/dL POC Glucose (mg/dL) 284 H 215 H (75-99) mg/dL 12/03/16 Range/Units 06:43 Sodium (137-145) mmol/L Chloride (98-107) mmol/L BUN (9-20) mg/dL Creatinine (0.66-1.25) mg/dL Glucose (74-99) mg/dL POC Glucose (mg/dL) 214 H (75-99) mg/dL Assessment and Plan Plan: Assessment: #1. Hypervolemic hyponatremia secondary to CHF exacerbation. Sodium level was up to 133 as of yesterday. #2. Chronic kidney disease stage III secondary to cardiorenal syndrome and mild component of diabetic kidney disease. Baseline creatinine in the range of 1.3-1.6. #3. Systolic CHF with ejection fraction of 45-50%. #4. Volume overload. Improving. #5. Insulin-dependent diabetes mellitus. #6. Nonoliguric acute kidney injury mostly prerenal from diuresis. Creatinine up to 2.3 as of yesterday. Plan: Maintain 1.5 L fluid restriction and low-salt diet. Continue with Lasix 40 mg orally twice daily. Avoid nephrotoxic agents and hypotensive episodes. Continue to monitor renal function and urine output. Check labs today.
[2016-12-03 11:00] LABS: Calcium 8.9 mg/dL (8.4-10.2); Potassium 4.6 mmol/L (3.5-5.1)
[2016-12-03 11:53] LABS: Glucose,Whole Blood 212 mg/dL (75-99)
--- NOTE | 2016-12-03 12:02 | PN ---
CHIEF COMPLAINT: Congestive heart failure, diabetes , electrolytes imbalance. HISTORY OF PRESENT ILLNESS: This gentleman continues to improve. Breathing is improved. Blood sugars are under better control. PHYSICAL EXAMINATION: There are no rales or rhonchi. Cardiac exam is unchanged. The abdomen is protuberant and soft. Extremities are unchanged. IMPRESSION: 1. Acute congestive heart failure. 2. Hyponatremia. 3. Renal failure. 4. Uncontrolled diabetes. PLAN: No change in program and continue to look into a discharge plan. JAVI
[2016-12-03 15:22] VITALS: BP 114/43; PULSE 68; RESP 20; TEMP 96.6
--- NOTE | 2016-12-03 22:28 | PN ---
This is an 81-year-old who was admitted with a diagnosis of CHF exacerbation. The patient is doing much better, feeling much less short of breath. He also has a history of hyponatremia, probably from hypervolemic hyponatremia, CAD, chronic renal failure, hypertension, hyperlipidemia, hypothyroidism, DVT and chronic gout. The patient does feel better; less short of breath. He is not coughing or wheezing. Not coughing up any phlegm. No fever. No chills. No hemoptysis. No urinary complaints. No GI complaints. Temperature 96.9, heart rate 84, respiratory rate 16, blood pressure 132/66, mean 88. Saturation is 97% on room air. Appears in no acute distress. HEENT examination is grossly unremarkable. Mucous membranes are moist. No oral lesions. NECK: Supple. Full range of motion. No adenopathy. No thyromegaly. Neck veins are flat. Cardiovascular examination reveals regular rhythm and rate. Heart rate 84. S1, S2 normal. Soft systolic murmur. No S3, S4. Lungs reveal mostly clear breath sounds. A few scattered crackles. No wheezes or rhonchi. ABDOMEN: Soft. Bowel sounds are heard. No masses or tenderness. Extremities are intact. Minimal edema. No cyanosis or clubbing. Skin without rash. Neurologic examination is brief but non-focal. Labs are reviewed. Sodium 136, potassium 4.6, chloride 96, CO2 27. BUN and creatinine were 87 and 2.50. Previous chest x-ray was done on November 30. It shows resolving CHF. Medications are reviewed. Microbiology is reviewed. ASSESSMENT: 1. Acute hypoxemia respiratory failure secondary to congestive heart failure exacerbation. 2. Hyponatremia, likely hypervolemic hyponatremia. 3. Coronary artery disease. 4. Chronic renal failure. 5. Hypertension. 6. Hyperlipidemia. 7. Hypothyroidism. 8. History of deep vein thrombosis. 9. History of chronic gout. PLAN: The patient seems to be doing reasonably well. Will continue to follow. Respiratory complaints have resolved or improved. No additional recommendations are made. Prognosis is guarded. MTDD
--- NOTE | 2016-12-04 08:51 | DS ---
CHIEF COMPLAINT: Shortness of breath. HISTORY OF PRESENT ILLNESS AND PHYSICAL EXAM: Details of this man's history and physical can be found in the initial workup. COURSE IN THE HOSPITAL: After admission, he was placed on bed rest and started on intravenous fluids and efforts were made to correct his hyponatremia. His congestive heart failure slowly being improved. BUN and creatinine started to drop as well. Sugars were somewhat of a problem, but they were doing somewhat better. Towards the end of his hospitalization, it was felt that he probably could benefit from going to rehab, but he and his son agreed that he would be leaving the hospital to go and stay with his son for the month. He will go home on no added salt, complex carbohydrate cardiac diet. He will be seen in the office in a day or 2. He will go home on: 1. Furosemide 40 mg twice a day. 2. KCl 10 mEq twice a day. 3. Magnesium oxide 250 mg once a day. 4. Levothyroxine 0.5 mg a day. 5. Isosorbide mononitrate ER 60 mg a day. 6. NPH 10 units a.c. meals t.i.d. 7. Ferrous sulfate 325 once a day. 8. Vitamin D3, 400 units a day. 9. Carvedilol 6.25. 10. Benazepril 5 mg once a day. 11. Aspirin 81 mg a day. 12. Apixaban 2.5 b.i.d. 13. Allopurinol 300 mg once day. FINAL DIAGNOSES: 1. Acute congestive heart failure. 2. Chronic congestive heart failure. 3. Atherosclerotic cardiomyopathy. 4. Uncontrolled diabetes. 5. Dehydration. 6 Renal failure. 7. Hyponatremia. OPERATIONS: None. CONSULTATIONS: Cardiology and Renal. He is improved. JAVI
== END 2016-12-03 15:35 | disposition home health service (06) | DRG 291 ==
LOC: EC 13:04 → 6SEL 15:20 → 6ICU 11-28 18:25 → 4MS4W 11-30 15:02
PROVIDERS: ADMIT Family Medicine; ATTEND Family Medicine
DX: I13.0 Hypertensive heart and chronic kidney disease with heart failure and stage 1 through stage 4 chronic kidney disease, or unspecified chronic kidney disease (principal); I50.41 Acute combined systolic (congestive) and diastolic (congestive) heart failure; J96.01 Acute respiratory failure with hypoxia; E86.0 Dehydration; N17.9 Acute kidney failure, unspecified; I16.1 Hypertensive emergency; E87.1 Hypo-osmolality and hyponatremia; I42.9 Cardiomyopathy, unspecified; I45.10 Unspecified right bundle-branch block; I25.2 Old myocardial infarction; I25.10 Atherosclerotic heart disease of native coronary artery without angina pectoris; I44.0 Atrioventricular block, first degree; I87.8 Other specified disorders of veins; E03.9 Hypothyroidism, unspecified; E11.22 Type 2 diabetes mellitus with diabetic chronic kidney disease; E11.65 Type 2 diabetes mellitus with hyperglycemia; E78.5 Hyperlipidemia, unspecified; E87.5 Hyperkalemia; H91.90 Unspecified hearing loss, unspecified ear; M1A.9XX0 Chronic gout, unspecified, without tophus (tophi); N18.3 Chronic kidney disease, stage 3 (moderate); Z79.01 Long term (current) use of anticoagulants; Z79.4 Long term (current) use of insulin; Z79.82 Long term (current) use of aspirin; Z86.718 Personal history of other venous thrombosis and embolism; Z87.891 Personal history of nicotine dependence; Z95.5 Presence of coronary angioplasty implant and graft
CPT/HCPCS: 36415; 71010; 80048; 80053; 81001; 82009; 82550; 82553; 83036; 83605; 83735; 83880; 84100; 84295; 84484; 85025; 85379; 85610; 85730; 87086; 93005; 93306; 96361; 96374; 96375; 99291

== ENCOUNTER → 2017-02-11 | Outpatient (CLI) | payer MEDICARE, BC ==
[2017-02-11 13:09] LABS: Anisocytosis Slight; CH 31.7; CHCM 31.7; HCT 38.7 % (39.0-53.0); MCH 31.2 pg (25.0-35.0); MCV 100.7 fL (80.0-100.0); Macrocytosis Slight; Mean Platelet Volume 7.7; RBC 3.84 m/uL (4.30-5.90); RDW 17.2 % (11.5-15.5); WBC 9.5 k/uL (3.8-10.6)
[2017-02-11 13:15] LABS: Calcium 8.8 mg/dL (8.4-10.2); Magnesium 1.7 mg/dL (1.6-2.3); Potassium 4.7 mmol/L (3.5-5.1)
[2017-02-11 18:40] LABS: Iron Saturation 34.48 (15.00-50.00)
== END | disposition home or self-care (01) ==
LOC: LABWHC1 11:59
PROVIDERS: ATTEND Nurse Practitioner Family
DX: N18.4 Chronic kidney disease, stage 4 (severe) (principal); D63.1 Anemia in chronic kidney disease; N25.81 Secondary hyperparathyroidism of renal origin; E55.9 Vitamin D deficiency, unspecified; R80.9 Proteinuria, unspecified
CPT/HCPCS: 36415; 80048; 82306; 82570; 82728; 83540; 83550; 83735; 83970; 84100; 84156; 85027

== ENCOUNTER → 2017-07-08 | Outpatient (CLI) | payer MEDICARE, BC ==
[2017-07-08 14:12] LABS: HCT 35.4 % (39.0-53.0); HGB 11.1 gm/dL (13.0-17.5); Hypochromasia Slight; MCH 30.9 pg (25.0-35.0); MCHC 31.3 g/dL (31.0-37.0); MCV 98.7 fL (80.0-100.0); Macrocytosis Slight; Mean Platelet Volume 7.1; Platelet Count 504 k/uL (150-450); RBC 3.59 m/uL (4.30-5.90); RDW 15.8 % (11.5-15.5); WBC 9.3 k/uL (3.8-10.6)
[2017-07-08 14:27] LABS: Calcium 9.3 mg/dL (8.4-10.2); Phosphorus 3.5 mg/dL (2.5-4.5); Potassium 4.9 mmol/L (3.5-5.1)
[2017-07-08 14:51] LABS: Creatinine,Urine Random 35.1 mg/dL
[2017-07-08 18:49] LABS: Iron Saturation 43.67 (15.00-50.00)
[2017-07-08 19:04] LABS: Parathyroid Hormone Intact 93.3 pg/mL (14.0-72.0)
== END | disposition home or self-care (01) ==
LOC: LABWHC1 13:23
PROVIDERS: ATTEND Nurse Practitioner Family
DX: N18.4 Chronic kidney disease, stage 4 (severe) (principal); D63.1 Anemia in chronic kidney disease; N25.81 Secondary hyperparathyroidism of renal origin; R80.9 Proteinuria, unspecified
CPT/HCPCS: 36415; 80048; 82306; 82570; 82728; 83540; 83550; 83735; 83970; 84100; 84156; 85027

== ENCOUNTER 2017-09-04 23:03 | Inpatient (IN) | payer MEDICARE, BC ==
[2017-09-04 23:17] LABS: Glucose,Whole Blood 271 mg/dL (75-99)
[2017-09-04 23:23] LABS: Basophils % (A) 0 %; Eosinophils # (A) 0.1 k/uL (0-0.7); Eosinophils % (A) 1 %; HCT 35.6 % (39.0-53.0); HGB 11.1 gm/dL (13.0-17.5); Hypochromasia Moderate; Lymphocytes # (A) 0.8 k/uL (1.0-4.8); Lymphocytes % (A) 9 %; MCHC 31.3 g/dL (31.0-37.0); Mean Platelet Volume 7.3; Monocytes # (A) 0.7 k/uL (0-1.0); Monocytes % (A) 8 %; Neutrophils # (A) 7.3 k/uL (1.3-7.7); Neutrophils % (A) 82 %; Platelet Count 374 k/uL (150-450); RBC 3.85 m/uL (4.30-5.90); RDW 15.7 % (11.5-15.5)
[2017-09-04 23:26] LABS: MCV 92.6 fL (80.0-100.0)
--- NOTE | 2017-09-04 23:31 | ED ---
Fall HPI - General Stated Complaint: WEAKNESS Time Seen by Provider: 09/04/17 23:03 Source: patient, EMS Mode of arrival: EMS - History of Present Illness Initial Comments: Is a 81-year-old male with a history of CHF who presents emergency Department after a fall. The patient states he is noticed some increased swelling in his lower extremities and also some numbness in his lower extremities over the last week or so. He states that today he went to stand up and became unsteady and slipped and fell forward. He states he did not hit his head however didn't injure his left elbow and left shoulder. He states he had called EMS to come get him. He does admit to feeling a little bit more weak recently. Denies any lightheadedness. No chest pain. He does admit to feeling increased amount of shortness of breath with exertion. Also states that he's been having worsening swelling in his legs. Otherwise no nausea, vomiting, or diarrhea. No other acute complaints at this time. - Related Data Home Medications Medication Instructions Recorded Confirmed Allopurinol [Zyloprim] 300 mg PO DAILY 02/13/15 09/04/17 Aspirin 81 mg PO DAILY 02/13/15 09/04/17 Isosorbide Mononitrate ER [Imdur] 60 mg PO DAILY 02/13/15 09/04/17 Levothyroxine Sodium [Synthroid] 50 mcg PO DAILY 02/13/15 09/04/17 Ferrous Sulfate [Feosol] 325 mg PO DAILY 10/08/16 09/04/17 Insulin NPH Hum/Reg Insulin Hm 10 unit SQ TID 10/08/16 09/04/17 [Humulin 70-30 Vial] [place]-3 Fatty Acids/Fish Oil [Fish 1 cap PO DAILY 10/08/16 09/04/17 Oil 1,000 mg Capsule] Calcium/Magnesium/Zinc 1 tab PO DAILY 09/04/17 09/04/17 [Gnkutyk-Feezuuizx-Voxm Tablet] Cholecalciferol [Vitamin D3] 1,000 unit PO DAILY 09/04/17 09/04/17 Vitamin E (Dl,Tocopheryl Acet) 400 unit PO DAILY 09/04/17 09/04/17 [Vitamin E] Previous Rx's Medication Instructions Recorded Apixaban [Eliquis] 2.5 mg PO BID #60 tab 12/03/16 Carvedilol [Coreg] 6.25 mg PO BID-W/MEALS #60 tab 12/03/16 Allergies Allergy/AdvReac Type Severity Reaction Status Date / Time No Known Allergies Allergy Verified 09/04/17 23:35 Review of Systems ROS Statement: Those systems with pertinent positive or pertinent negative responses have been documented in the HPI. ROS Other: All systems not noted in ROS Statement are negative. Past Medical History Past Medical History: Coronary Artery Disease (CAD), Diabetes Mellitus, Hearing Disorder / Deafness, Myocardial Infarction ([place]), Renal Disease, Thyroid Disorder Additional Past Medical History / Comment(s): Coronary artery disease, coronary intervention stenting, congestion heart failure with an ejection fraction of 45- 50%, moderate concentric left ventricular hypertrophy, gout, diabetes mellitus, hypertension, hyperlipidemia, DVT , chronic renal failure, chronic bilateral lower extremity ulceration/venous stasis, Hypothyroid, deafness Last Myocardial Infarction Date:: unk History of Any Multi-Drug Resistant Organisms: None Reported Past Surgical History: Back Surgery, Heart Catheterization With Stent Date of Last Stent Placement:: unknown Past Psychological History: No Psychological Hx Reported Smoking Status: Former smoker Past Alcohol Use History: None Reported, Rare Past Drug Use History: None Reported - Past Family History Mother Family Medical History: Diabetes Mellitus Additional Family Medical History / Comment(s): age 79 from "a little bit of everything" Father Family Medical History: CVA/TIA Additional Family Medical History / Comment(s): age 83 General Exam - General Exam Comments Initial Comments: Constitutional: Awake alert Appears comfortable Head: Normocephalic atraumatic Eyes: no conjunctival injection No scleral icterus EOMI Neck: No JVD Supple Heart: Regular rate rhythm normal S1-S2 no murmurs Lungs: Clear to auscultation bilaterally No wheezing No rales, decreased breath sounds at the bases bilaterally with some mild crackling Abdomen: Soft nondistended nontender Extremities: Bilateral pitting edema up to the knees DP pulses intact Radial pulses intact, there is a skin tear to the left elbow Neuro: A&Ox3 5 out of 5 strength in upper and lower extremities bilaterally, cranial nerves II through XII are grossly intact, no noticeable slurred speech No focal neurologic deficits Psych: Appropriate mood and affect Limitations: no limitations Course Vital Signs 09/04/17 23:08 Temperature 97.5 F L Pulse Rate 90 Respiratory 18 Rate Blood Pressure 132/80 O2 Sat by Pulse 92 L Oximetry - Reevaluation(s) Reevaluation #1: 09/04/17 23:31 EKG showing what appears to be atrial fibrillation with a rate of 97. There is no abnormal ST segment changes or T-wave inversions. The patient does have a right bundle-branch block. QTC is 495. Other intervals normal. No ectopy. Medical Decision Making - Medical Decision Making Is an 81-year-old male who presents emergency department for a fall radial also had noticed some increasing shortness of breath and also increasing amount of lower extremity swelling. The patient's BNP was elevated over 8000. Chest x- ray did show some worsening pleural effusions. Otherwise the rest of his blood work was at baseline. He has chronic hyponatremia and chronic kidney disease. Going to give him a dose of Lasix and bring the hospital for CHF exacerbation. No traumatic injuries found except for the skin tear which was repaired with Steri-Strips at bedside. Dr. Hazel was notified of the admission and agrees. The patient was also updated. All questions answered. - Lab Data Result diagrams: 09/04/17 23:07 09/04/17 23:07 Lab Results 09/04/17 09/04/17 09/04/17 Range/Units 23:07 23:07 23:07 WBC 9.0 (3.8-10.6) k/uL RBC 3.85 L (4.30-5.90) m/uL Hgb 11.1 L (13.0-17.5) gm/dL Hct 35.6 L (39.0-53.0) % MCV 92.6 D (80.0-100.0) fL MCH 29.0 (25.0-35.0) pg MCHC 31.3 (31.0-37.0) g/dL RDW 15.7 H (11.5-15.5) % Plt Count 374 (150-450) k/uL Neutrophils % 82 % Lymphocytes % 9 % Monocytes % 8 % Eosinophils % 1 % Basophils % 0 % Neutrophils # 7.3 (1.3-7.7) k/uL Lymphocytes # 0.8 L (1.0-4.8) k/uL Monocytes # 0.7 (0-1.0) k/uL Eosinophils # 0.1 (0-0.7) k/uL Basophils # 0.0 (0-0.2) k/uL Hypochromasia Moderate PT (9.0-12.0) sec INR (<1.2) APTT (22.0-30.0) sec Sodium 128 L (137-145) mmol/L Potassium 4.7 (3.5-5.1) mmol/L Chloride 90 L (98-107) mmol/L Carbon Dioxide 27 (22-30) mmol/L Anion Gap 11 mmol/L BUN 82 H* (9-20) mg/dL Creatinine 1.90 H (0.66-1.25) mg/dL Est GFR (CKD-EPI)AfAm 37 (>60 ml/min/1.73 sqM) Est GFR (CKD-EPI)NonAf 32 (>60 ml/min/1.73 sqM) Glucose 274 H (74-99) mg/dL POC Glucose (mg/dL) (75-99) mg/dL POC Glu Operating Room Assistant ID Calcium 8.6 (8.4-10.2) mg/dL Total Bilirubin 0.7 (0.2-1.3) mg/dL AST 47 (17-59) U/L ALT 40 (21-72) U/L Alkaline Phosphatase 140 H (38-126) U/L CK-MB (CK-2) 5.6 H* (0.0-2.4) ng/mL Troponin I 0.013 (0.000-0.034) ng/mL NT-Pro-B Natriuret Pep pg/mL Total Protein 5.6 L (6.3-8.2) g/dL Albumin 3.0 L (3.5-5.0) g/dL 09/04/17 09/04/17 09/04/17 Range/Units 23:07 23:07 23:13 WBC (3.8-10.6) k/uL RBC (4.30-5.90) m/uL Hgb (13.0-17.5) gm/dL Hct (39.0-53.0) % MCV (80.0-100.0) fL MCH (25.0-35.0) pg MCHC (31.0-37.0) g/dL RDW (11.5-15.5) % Plt Count (150-450) k/uL Neutrophils % % Lymphocytes % % Monocytes % % Eosinophils % % Basophils % % Neutrophils # (1.3-7.7) k/uL Lymphocytes # (1.0-4.8) k/uL Monocytes # (0-1.0) k/uL Eosinophils # (0-0.7) k/uL Basophils # (0-0.2) k/uL Hypochromasia PT 11.4 (9.0-12.0) sec INR 1.2 H (<1.2) APTT 24.3 (22.0-30.0) sec Sodium (137-145) mmol/L Potassium (3.5-5.1) mmol/L Chloride (98-107) mmol/L Carbon Dioxide (22-30) mmol/L Anion Gap mmol/L BUN (9-20) mg/dL Creatinine (0.66-1.25) mg/dL Est GFR (CKD-EPI)AfAm (>60 ml/min/1.73 sqM) Est GFR (CKD-EPI)NonAf (>60 ml/min/1.73 sqM) Glucose (74-99) mg/dL POC Glucose (mg/dL) 271 H (75-99) mg/dL POC Glu Operating Room Assistant ID Radha Bar Calcium (8.4-10.2) mg/dL Total Bilirubin (0.2-1.3) mg/dL AST (17-59) U/L ALT (21-72) U/L Alkaline Phosphatase (38-126) U/L CK-MB (CK-2) (0.0-2.4) ng/mL Troponin I (0.000-0.034) ng/mL NT-Pro-B Natriuret Pep 8150 pg/mL Total Protein (6.3-8.2) g/dL Albumin (3.5-5.0) g/dL Disposition Clinical Impression: CHF exacerbation, Skin tear, Fall Disposition: ADMITTED IP TO THIS HOSP Condition: Stable
[2017-09-04 23:34] LABS: INR 1.2 (<1.2); Partial Thromboplastin Time 24.3 sec (22.0-30.0); Prothrombin Time 11.4 sec (9.0-12.0)
[2017-09-04 23:41] LABS: Calcium 8.6 mg/dL (8.4-10.2); Potassium 4.7 mmol/L (3.5-5.1); Total Bilirubin 0.7 mg/dL (0.2-1.3); Total Protein 5.6 g/dL (6.3-8.2)
--- NOTE | 2017-09-04 23:49 | CT ---
EXAMINATION TYPE: CT brain wo con DATE OF EXAM: 09/04/2017 COMPARISON: 02/13/2015 HISTORY: Prior on synaspe, weakness, fall, swelling to BLE CT DLP: 1072.30 mGycm Automated exposure control for dose reduction was used. FINDINGS: There is moderate diffuse cerebral atrophy. There is no mass effect nor midline shift. There is no si gn of intracranial hemorrhage. There is patchy hypodensity in the periventricular white matter. The c alvarium is intact. There is limited pneumatization of the mastoid sinuses. IMPRESSION: CEREBRAL ATROPHY AND CHRONIC SMALL VESSEL ISCHEMIA. NO ACUTE ABNORMALITY. WHITE MATTER CHANGES SHOW S OME PROGRESSION COMPARED TO OLD EXAM.
--- NOTE | 2017-09-04 23:51 | XR ---
EXAMINATION TYPE: XR chest 2V DATE OF EXAM: 09/04/2017 COMPARISON: 11/30/2016 HISTORY: Weakness TECHNIQUE: Frontal and lateral views of the chest are obtained. FINDINGS: Heart is enlarged. There is pulmonary vascular congestion. There is blunting of costophren ic angles. There are chest leads. There is some fluid in the major fissures. IMPRESSION: Congestive heart failure with pleural effusions. This appears the same or worse than las t exam. Lower lobe pneumonia is possible.
[2017-09-04 23:58] LABS: Troponin I 0.013 ng/mL (0.000-0.034)
[2017-09-05 00:01] LABS: Creatine Kinase MB 5.6 ng/mL (0.0-2.4)
[2017-09-05] MEDS ORDERED: FUROSEMIDE 10 MG/ML 4 ML VIAL IV STA (00:21)
--- NOTE | 2017-09-05 00:22 | XR ---
EXAMINATION TYPE: XR shoulder complete LT DATE OF EXAM: 09/05/2017 COMPARISON: NONE HISTORY: Shoulder pain TECHNIQUE: 3 views FINDINGS: There is calcification at the greater tuberosity. There is spurring at the AC joint. I see no fracture nor dislocation. Joint spaces are fairly normal. IMPRESSION: Calcific tendinitis. No fracture seen.
[2017-09-05] MEDS ORDERED: NALOXONE 0.4 MG/ML 1 ML VIAL IV PRN (00:23)
[2017-09-05] MEDS: LEVOTHYROXINE 50 MCG TAB PO SCH ×2 (06:43→09:17)
[2017-09-05 06:47] LABS: Troponin I 0.018 ng/mL (0.000-0.034)
[2017-09-05 06:55] LABS: Creatine Kinase MB 4.7 ng/mL (0.0-2.4)
[2017-09-05] MEDS: CARVEDILOL 6.25 MG TAB PO SCH ×2 (09:13→17:57)
[2017-09-05] MEDS: VITAMIN E (DL,TOCOPHERYL ACET) 400 UNIT CAP PO SCH (09:14)
[2017-09-05] MEDS: ALLOPURINOL 300 MG TAB PO SCH (09:14)
[2017-09-05] MEDS: APIXABAN 2.5 MG TABLET PO SCH ×2 (09:14→20:40)
[2017-09-05] MEDS: ASPIRIN 81 MG PO SCH (09:15)
[2017-09-05] MEDS: CHOLECALCIFEROL 1,000 UNIT TAB PO SCH (09:15)
[2017-09-05] MEDS: FERROUS SULFATE 325 MG TAB PO SCH (09:16)
[2017-09-05] MEDS: ISOSORBIDE MONONITRATE ER 60 MG TAB.ER.24H PO SCH (09:17)
[2017-09-05] MEDS: INSULIN NPH/REG INSULIN 70/30 300 UNIT/3 ML VIAL SQ SCH ×3 (09:22→17:58)
[2017-09-05 09:26] LABS: Glucose,Whole Blood 299 mg/dL (75-99)
[2017-09-05] MEDS: NON-FORMULARY DRUG (Calcium/Magnesium/Zinc [Calcium-Magnesium-Zinc Tablet] 1 TAB) PO SCH (12:05)
[2017-09-05] MEDS: NON-FORMULARY DRUG (Omega-3 Fatty Acids/Fish Oil [Fish Oil 1,000 Mg Capsule] 1 CAP) PO SCH (12:06)
[2017-09-05 13:29] LABS: Troponin I 0.018 ng/mL (0.000-0.034)
[2017-09-05 13:36] LABS: Creatine Kinase MB 4.2 ng/mL (0.0-2.4)
--- NOTE | 2017-09-05 17:40 | HP ---
HISTORY AND PHYSICAL CHIEF COMPLAINT: Shortness of breath, falling, abrasion on the left elbow and contusion on the left shoulder. HISTORY OF PRESENT ILLNESS: This is another admission for this 81-year-old white male who is extremely noncompliant over management of his diabetes over the years. He also has morbid obesity, hypertension, renal failure, arthritis and mental debility. He apparently tried to get up, was confused and fell. He came to the emergency room, where he was determined to be in congestive heart failure. REVIEW OF SYSTEMS: He denies focal neurologic deficits, problems with vision or hearing, chest pain, cough, hemoptysis, palpitations, abdominal pain, nausea, vomiting, diarrhea, melena, hematochezia, hematuria, dysuria, etc. Past medical history, family history, and personal and social histories are unremarkable and noncontributory essentially, but HE CANNOT TAKE STATINS. He is on: 1. Eliquis 2.5 mg twice a day. 2. Entresto 24-26 twice a day. 3. Aldactone 25 mg once a day. 4. Calcium and magnesium. 5. Vitamin D3. 6. Carvedilol 6.25 twice a day. 7. Lasix 80 mg twice a day. 8. Isordil 60 mg once a day. 9. Humulin 70/30 ten units 3 times a day. 10.Levothyroxine 0.05 mg once a day. 11.Allopurinol 300 mg once a day. 12.Ferrous sulfate 325 mg once a day. He does not smoke or drink. PHYSICAL EXAMINATION: Temperature is 97.9, blood pressure 142/82 with a pulse of 120 and respirations of 39. In general he appeared to be overweight. He is a little bit more lethargic than normal. Skin color is normal. Head, ears, eyes, nose, mouth and throat were normal. Neck veins were distended. Chest demonstrated occasional rhonchi and there were scattered rales. Cardiac exam demonstrated an irregularly irregular rhythm. It was thought that there was an S4. The abdomen was protuberant, soft, and there were no masses or visceromegaly. Extremities were normal. There was very little edema. Pulses of the feet were diminished. Neurologically he was a little bit more lethargic than usual but otherwise intact. IMPRESSION: 1. Congestive heart failure. 2. Uncontrolled diabetes mellitus. 3. Hypertension. 4. Renal failure. PLAN: 1. Bed rest. 2. IV fluids. 3. Diuresis. 4. Discharge planning. GILBERT / ROSEN: [id number] /
[2017-09-05 17:45] LABS: Glucose,Whole Blood 218 mg/dL (75-99)
[2017-09-06 03:32] LABS: Glucose,Whole Blood 217 mg/dL (75-99)
[2017-09-06 07:11] LABS: Glucose,Whole Blood 185 mg/dL (75-99)
[2017-09-06] MEDS: INSULIN NPH/REG INSULIN 70/30 300 UNIT/3 ML VIAL SQ SCH ×3 (07:35→17:25)
[2017-09-06] MEDS: ASPIRIN 81 MG PO SCH (07:36)
[2017-09-06] MEDS: ALLOPURINOL 300 MG TAB PO SCH (07:36)
[2017-09-06] MEDS: NON-FORMULARY DRUG (Calcium/Magnesium/Zinc [Calcium-Magnesium-Zinc Tablet] 1 TAB) PO SCH (07:36)
[2017-09-06] MEDS: CARVEDILOL 6.25 MG TAB PO SCH ×2 (07:36→17:25)
[2017-09-06] MEDS: CHOLECALCIFEROL 1,000 UNIT TAB PO SCH (07:36)
[2017-09-06] MEDS: APIXABAN 2.5 MG TABLET PO SCH ×2 (07:36→22:32)
[2017-09-06] MEDS: NON-FORMULARY DRUG (Omega-3 Fatty Acids/Fish Oil [Fish Oil 1,000 Mg Capsule] 1 CAP) PO SCH (07:36)
[2017-09-06] MEDS: VITAMIN E (DL,TOCOPHERYL ACET) 400 UNIT CAP PO SCH (07:36)
[2017-09-06] MEDS: FERROUS SULFATE 325 MG TAB PO SCH (07:36)
[2017-09-06] MEDS: ISOSORBIDE MONONITRATE ER 60 MG TAB.ER.24H PO SCH (07:36)
--- NOTE | 2017-09-06 11:20 | CDI ---
Last Revision, April 2017 Documentation Clarification Form Date: 09/06/17 1117 From: Cintia Abdalla RN, CCDS Admit Date: 09/05/2017 12:23:00 AM Patient Name: Tariq White Visit Number: [id number] ATTENTION: The Clinical Documentation Specialists (CDI) and [facility] Coding Staff appreciate your assistance in clarifying documentation. Please respond to the clarification below the line at the bottom and electronically sign. The CDI & [facility] Coding staff will review the response and follow-up if needed. Please note: Queries are made part of the Legal Health Record. If you have any questions, please contact the author of this message via ITS. Dr. José Hazel Renal Failure was documented in the H&P and requires further specificity. History/Risk Factors: CHF, Uncontrolled DM, HTN, Renal Failure 09/02/17 Patients baseline BUN/CR/GFR: 83/2.36/25 Clinical Indicators: Current BUN/Cr/GFR : 82/ 1.9/ 32 Treatment: Lasix 40mg Ivp x1 IVF: none ordered In order to capture the severity of condition, please clarify if the condition signifies: Acute renal failure, Please specify etiology (if known): Cortical Necrosis Medullary Necrosis Tubular Necrosis Acute kidney injury Acute on chronic renal failure CKD Stage 1 GFR >90 CKD Stage 2 GFR 60-89 CKD Stage 3 GFR 30-59 CKD Stage 4 GFR 15-29 CKD Stage 5 GFR <15 Chronic renal failure/Chronic Kidney disease (CKD) please stage if known CKD Stage 1 GFR >90 CKD Stage 2 GFR 60-89 CKD Stage 3 GFR 30-59 CKD Stage 4 GFR 15-29 CKD Stage 5 GFR <15 ESRD Other, please specify Unable to determine Please continue to document in your progress notes and discharge summary in order to capture severity of illness and risk of mortality. Include clinical findings that support your diagnosis. MTDD
[2017-09-06] MEDS ORDERED: FUROSEMIDE 10 MG/ML 4 ML VIAL IV STA (12:14)
--- NOTE | 2017-09-06 12:25 | ECHOF ---
Referral Reason:CHF MEASUREMENTS -------- HEIGHT: 165.1 cm WEIGHT: 93.9 kg BP: 147/66 RVIDd: 3.2 cm (< 3.3) IVSd: 1.3 cm (0.6 - 1.1) LVIDd: 5.7 cm (3.9 - 5.3) LVPWd: 1.1 cm (0.6 - 1.1) IVSs: 2.0 cm LVIDs: 3.6 cm LVPWs: 1.8 cm LA Diam: 4.1 cm (2.7 - 3.8) LAESV Index (A-L): 33.14 ml/m Ao Diam: 3.3 cm (2.0 - 3.7) AV Cusp: 2.2 cm (1.5 - 2.6) MV EXCURSION: 14.230 mm (> 18.000) MV EF SLOPE: 143 mm/s (70 - 150) EPSS: 1.3 cm AR PHT: 671 ms RAP: 5.00 mmHg RVSP: 48.37 mmHg FINDINGS -------- This was a technically adequate study. The left ventricular size is normal. There is mild concentric left ventricular hypertrophy. Overa ll left ventricular systolic function is moderate-severely impaired with, an EF between 30 - 35 %. Apical anterior LV wall motion is hypokinetic. Apical lateral LV wall motion is hypokinetic. Ap ical inferior LV wall motion is hypokinetic. Apical septum LV wall motion is hypokinetic. The right ventricle is normal in size. LA is midly dilated 29-33ml/m2. The right atrium is normal in size. There is mild aortic valve sclerosis. There is mild aortic regurgitation. The mitral valve leaflets are mildly thickened. Mild mitral regurgitation is present. Mild tricuspid regurgitation present. There is moderate pulmonary hypertension. The right ventric ular systolic pressure, as measured by Doppler, is 48.37mmHg. There is no pulmonic regurgitation present. The aortic root size is normal. IVC Not well visulized. There is a small, generalized pericardial effusion present. CONCLUSIONS -------- 1. This was a technically adequate study. 2. The left ventricular size is normal. 3. There is mild concentric left ventricular hypertrophy. 4. Overall left ventricular systolic function is moderate-severely impaired with, an EF between 30 - 35 %. 5. Apical anterior LV wall motion is hypokinetic. 6. Apical lateral LV wall motion is hypokinetic. 7. Apical inferior LV wall motion is hypokinetic. 8. Apical septum LV wall motion is hypokinetic. 9. The right ventricle is normal in size. 10. LA is midly dilated 29-33ml/m2. 11. The right atrium is normal in size. 12. There is mild aortic valve sclerosis. 13. There is mild aortic regurgitation. 14. The mitral valve leaflets are mildly thickened. 15. Mild mitral regurgitation is present. 16. Mild tricuspid regurgitation present. 17. There is moderate pulmonary hypertension. 18. The right ventricular systolic pressure, as measured by Doppler, is 48.37mmHg. 19. There is no pulmonic regurgitation present. 20. The aortic root size is normal. 21. IVC Not well visulized. 22. There is a small, generalized pericardial effusion present. [employer] FABRICATOR: Amparo Rodriguez RDCS
[2017-09-06 12:27] LABS: Glucose,Whole Blood 305 mg/dL (75-99)
[2017-09-06] MEDS: LISINOPRIL 2.5 MG TAB PO SCH (13:11)
[2017-09-06] MEDS: SPIRONOLACTONE 25 MG TAB PO SCH (13:12)
--- NOTE | 2017-09-06 13:15 | P.CRDCN ---
History of Present Illness Consult date: 09/06/17 History of present illness: Mr. White is a pleasantly confused 81-year-old male past medical history significant for coronary artery disease, systolic heart failure, paroxysmal atrial fibrillation on correction anti-coagulation, diabetes mellitus , hypertension, dyslipidemia, chronic renal disease, peripheral vascular disease , venous stasis and former nicotine dependence. There is no information available at this time as to his history of coronary artery disease. We have been asked to see him for evaluation of heart failure. He is confused and a poor historian. Information is taken from nursing staff and medical record. Apparently he was brought to the hospital 2 days ago after a fall at home. He fell on his left side mostly on the left shoulder and arm. He was also complaining of some weakness and increased swelling of his legs. The fall was secondary to dizziness with shortness of breath. He denied symptoms of chest pain in ED initially. CT of the brain was performed which was negative for an acute abnormality with cerebral atrophy and chronic small vessel ischemia. There is some progression of the white matter changes compared to old exam in 2015. Shoulder x-ray is performed and is negative for fracture. Chest x-ray on admission reveals congestive heart failure with pleural effusions that appear to be with same or worse then previous exam to frontal diagnosis is lower lobe pneumonia. He was admitted into the hospital in November 2016 with acute exacerbation of systolic congestive heart failure. At that time his ejection fraction was approximately 45-50% with apical hypokinesia and a dilated left atrium. Repeat echocardiogram done today reveals a significant decrease in the left ventricular systolic function with an ejection fraction 30- 35%, apical anterior, apical lateral, apical inferior, and apical septal wall hypokinesia, mildly dilated left atrium, mild aortic sclerosis, mild aortic regurgitation, mild MR, mild TR and moderate pulmonary hypertension with RVSP 48.37 mmHg. Laboratory data reviewed, cardiac enzymes negative 3, hemoglobin 11.1, platelets 374, sodium 128, potassium 4.7, creatinine 1.9, proBNP 8150. Current home cardiac medications include Ellik was 2.5 mg twice a day, aspirin 81 mg daily, carvedilol 6.25 mg twice a day, Imdur 60 mg daily. EKG on arrival reveals atrial fibrillation with right bundle branch block pattern with controlled ventricular response heart rate of 97. Review of Systems ROS unobtainable: due to mental status Past Medical History Past Medical History: Coronary Artery Disease (CAD), Heart Failure, Diabetes Mellitus, Deep Vein Thrombosis (DVT), Hearing Disorder / Deafness, Hyperlipidemia, Hypertension, Renal Disease, Thyroid Disorder, Vascular Disorder Additional Past Medical History / Comment(s): Cardiomyopathy, IDDM type II, CKD , hypothyroid, bilateral lower extremity ulcers, venous stasis. Last Myocardial Infarction Date:: unk History of Any Multi-Drug Resistant Organisms: None Reported Past Surgical History: Back Surgery, Heart Catheterization With Stent, Hernia Repair Additional Past Surgical History / Comment(s): L leg varicose vein surgery, umbilical hernia repair, bilateral cataract removal with lens implants. Past Anesthesia/Blood Transfusion Reactions: No Reported Reaction Date of Last Stent Placement:: unknown Smoking Status: Former smoker - Past Family History Mother Family Medical History: Diabetes Mellitus Additional Family Medical History / Comment(s): age 79 from "a little bit of everything" Father Family Medical History: CVA/TIA Additional Family Medical History / Comment(s): age 83 Medications and Allergies Home Medications Medication Instructions Recorded Confirmed Type Allopurinol [Zyloprim] 300 mg PO DAILY 02/13/15 09/04/17 History Aspirin 81 mg PO DAILY 02/13/15 09/04/17 History Isosorbide Mononitrate ER [Imdur] 60 mg PO DAILY 02/13/15 09/04/17 History Levothyroxine Sodium [Synthroid] 50 mcg PO DAILY 02/13/15 09/04/17 History Ferrous Sulfate [Feosol] 325 mg PO DAILY 10/08/16 09/04/17 History Insulin NPH Hum/Reg Insulin Hm 10 unit SQ TID 10/08/16 09/04/17 History [Humulin 70-30 Vial] [place]-3 Fatty Acids/Fish Oil [Fish 1 cap PO DAILY 10/08/16 09/04/17 History Oil 1,000 mg Capsule] Apixaban [Eliquis] 2.5 mg PO BID #60 tab 12/03/16 09/04/17 Rx Carvedilol [Coreg] 6.25 mg PO BID-W/MEALS #60 tab 12/03/16 09/04/17 Rx Calcium/Magnesium/Zinc 1 tab PO DAILY 09/04/17 09/04/17 History [Iczlbmq-Ddnhceooz-Wghv Tablet] Cholecalciferol [Vitamin D3] 1,000 unit PO DAILY 09/04/17 09/04/17 History Vitamin E (Dl,Tocopheryl Acet) 400 unit PO DAILY 09/04/17 09/04/17 History [Vitamin E] Allergies Allergy/AdvReac Type Severity Reaction Status Date / Time No Known Allergies Allergy Verified 09/04/17 23:35 Physical Exam Vitals: Vital Signs Temp Pulse Resp BP Pulse Ox 09/06/17 06:57 96.5 F L 65 16 147/66 100 09/05/17 22:28 96.9 F L 66 18 135/89 100 09/05/17 17:45 97.6 F 50 L 16 146/70 97 09/05/17 16:33 18 09/05/17 15:00 56 L 16 148/70 100 09/05/17 13:28 18 Intake and Output 09/05/17 09/06/17 09/06/17 22:59 06:59 14:59 Other: Voiding Method Urinal Urinal Urinal # Voids 1 2 # Bowel Movements 1 Weight 94 kg Blood pressure 147/66 heart rate 65 afebrile maintaining oxygen saturation on nasal cannula GENERAL: This is a 81-year-old occasion male in no apparent distress at the time of my examination. Obese. Ecchymotic areas noted to the left shoulder, left thoracic region, right upper arm and mid back region. HEENT: Head is atraumatic, normocephalic. Pupils are equal, round. Sclerae anicteric. Conjunctivae are clear. Mucous membranes of the mouth are moist. Neck is supple. There is no jugular venous distention. No carotid bruit is heard. LUNGS: Clear to auscultation no wheezes, rales or rhonchi. No chest wall tenderness is noted on palpation or with deep breathing. HEART: Irregular rate and rhythm with systolic ejection murmur at the base, no rubs or gallops. S1 and S2 heard. ABDOMEN: Soft, nontender. Bowel sounds are heard. No organomegaly noted. EXTREMITIES: Bilateral lower extremity 1+ pitting edema with peripheral discoloration indicative of venous stasis with multiple wounds in different stages of healing noted on the feet as well as lower extremity. No calf tenderness noted. VASCULAR: Radial and dorsalis pedis pulses palpated, no evidence of clubbing. NEUROLOGIC: Patient is awake, alert and oriented x1-2. Results 09/04/17 23:07 09/04/17 23:07 Cardiac Enzymes 09/05/17 Range/Units 11:39 CK-MB (CK-2) 4.2 H* (0.0-2.4) ng/mL Troponin I 0.018 (0.000-0.034) ng/mL Current Medications Generic Name Dose Route Start Last Admin Trade Name Freq PRN Reason Stop Dose Admin Allopurinol 300 mg 09/05/17 09:00 09/06/17 07:36 Zyloprim PO 300 mg DAILY CARA Administration Apixaban 2.5 mg 09/05/17 09:00 09/06/17 07:36 Eliquis PO 2.5 mg BID CARA Administration Aspirin 81 mg 09/05/17 09:00 09/06/17 07:36 Aspirin PO 81 mg DAILY CARA Administration Carvedilol 6.25 mg 09/05/17 07:30 09/06/17 07:36 Coreg PO 6.25 mg BID-W/MEALS CARA Administration Cholecalciferol 1,000 unit 09/05/17 09:00 09/06/17 07:36 Vitamin D3 PO 1,000 unit DAILY [facility] Administration Ferrous Sulfate 325 mg 09/05/17 09:00 09/06/17 07:36 Feosol PO 325 mg DAILY CARA Administration Insulin Human Isoph/Insulin Regular 10 unit 09/05/17 17:30 09/06/17 12:09 Humulin 70/30 Vial SQ 10 unit 0730,1230,1730 CARA Administration Isosorbide Mononitrate 60 mg 09/05/17 09:00 09/06/17 07:36 Imdur PO 60 mg DAILY [facility]A Administration Levothyroxine Sodium 50 mcg 09/05/17 06:30 09/05/17 09:17 Synthroid PO 50 mcg 0630 CARA Administration Lisinopril 2.5 mg 09/06/17 12:15 Zestril PO DAILY [facility] Naloxone HCl 0.2 mg 09/05/17 00:23 Narcan IV Q2M PRN Opioid Reversal Non-Formulary Medication 1 tab 09/05/17 09:00 09/06/17 07:36 Calcium/Magnesium/Zinc [Zpnnarz-Gdebtugrz-Oiew Tablet] PO Not Given DAILY [facility] Non-Formulary Medication 1 cap 09/05/17 09:00 09/06/17 07:36 [place]-3 Fatty Acids/Fish Oil [Fish Oil 1,000 Mg Capsule] PO Not Given DAILY [facility] Spironolactone 25 mg 09/06/17 12:15 Aldactone PO DAILY [facility] Vitamin E 400 unit 09/05/17 09:00 09/06/17 07:36 Vitamin E PO 400 unit DAILY [facility] Administration Intake and Output 09/05/17 09/06/17 09/06/17 22:59 06:59 14:59 Other: Voiding Method Urinal Urinal Urinal # Voids 1 2 # Bowel Movements 1 Weight 94 kg 09/04/17 23:07 09/04/17 23:07 Assessment and Plan Assessment: ASSESSMENT 1. Acute on chronic systolic heart failure with worsening left ventricular systolic function 2. Ischemic cardiomyopathy 3. History of coronary artery disease, details unavailable at this time. 4. Hyponatremia 5. Chronic kidney disease 6. Paroxysmal atrial fibrillation on long-term anticoagulation with controlled ventricular response 7. Hypertension 8. Dyslipidemia 9. Altered mental status 10. Diabetes mellitus PLAN From cardiology's perspective recommend adding Aldactone 25 mg daily, lisinopril 2.5 mg daily and Lasix IV 40 mg 1 today. Continue with eliquis, aspirin, carvedilol and Imdur as was previously ordered. Will consider further diuresis after repeat kidney function and electrolytes tomorrow. Obtain daily weights as well as strict intake and output. Ongoing telemetry monitoring to assess for acute arrhythmia. Follow kidney function and electrolytes closely. Must consider discontinuation of anticoagulation secondary to falls and confusion if the patient does not go to a rehab facility. Consider nephrology recommendations for ongoing diuresis and kidney disease. Further recommendations based upon clinical course. Thank you kindly for this consultation. Nurse Practitioner note has been reviewed, I agree with a documented findings and plan of care. Patient was seen and examined.
[2017-09-06 14:30] VITALS: BMI 34.4
[2017-09-06] MEDS ORDERED: ACETAMINOPHEN TAB 325 MG TAB PO PRN (17:27)
[2017-09-06 17:32] LABS: Glucose,Whole Blood 207 mg/dL (75-99)
--- NOTE | 2017-09-06 17:38 | PN ---
PROGRESS NOTE CHIEF COMPLAINT: Congestive heart failure, failure to thrive and falling. HISTORY OF PRESENT ILLNESS: This gentleman is doing reasonably well. He is still weak. He is not short of breath. PHYSICAL EXAM: Chest demonstrates poor breath sounds with rales at bases. Cardiac exam is unremarkable. Abdomen is protuberant, soft. Extremities are unchanged. IMPRESSION: 1. Congestive heart failure. 2. Failure to thrive. 3. Poorly-controlled diabetes mellitus. 4. Renal failure. PLAN: 1. Continue to try to increase activity. 2. Continue management of his CHF. 3. OT, PT and ST. 4. Discharge planning and this was discussed with the son and even though the patient is reluctant, we will probably recommend that he go to a fdc for rehab following discharge. GILBERT / BILLY: [id number] /
[2017-09-06 20:36] LABS: Glucose,Whole Blood 270 mg/dL (75-99)
[2017-09-06] MEDS ORDERED: busPIRone HCl 5 MG TAB PO PRN (22:02)
[2017-09-06] MEDS ORDERED: HALOPERIDOL LACTATE 5 MG/ML 1 ML VIAL IM PRN (22:02)
[2017-09-06] MEDS ORDERED: INSULIN ASPART 100 UNIT/ML 1 ML 10 ML VIAL SQ ONE (22:04)
[2017-09-06] MEDS: busPIRone HCl 10 MG TAB PO PRN (22:32)
[2017-09-07] MEDS ORDERED: RX INFO: IV CONTRAST WAS GIVEN 1 EACH MISC MISCELLANE PRN (00:35)
[2017-09-07] MEDS ORDERED: HEPARIN SODIUM,PORCINE 5,000 UNIT/ML 1 ML VIAL IV PRN (00:37)
[2017-09-07] MEDS ORDERED: HEPARIN SODIUM,PORCINE 10,000 UNIT/ML 1 ML VIAL IV ONE (00:37)
[2017-09-07] MEDS ORDERED: HALOPERIDOL LACTATE 5 MG/ML 1 ML VIAL IM PRN (00:47)
[2017-09-07 00:50] LABS: Basophils % (A) 0 %; Eosinophils # (A) 0.2 k/uL (0-0.7); Eosinophils % (A) 2 %; HCT 38.5 % (39.0-53.0); HGB 11.7 gm/dL (13.0-17.5); Hypochromasia Moderate; Lymphocytes # (A) 1.3 k/uL (1.0-4.8); Lymphocytes % (A) 13 %; MCH 29.3 pg (25.0-35.0); MCHC 30.4 g/dL (31.0-37.0); MCV 96.5 fL (80.0-100.0); Mean Platelet Volume 6.9; Monocytes # (A) 0.6 k/uL (0-1.0); Monocytes % (A) 7 %; Neutrophils # (A) 7.6 k/uL (1.3-7.7); Neutrophils % (A) 77 %; Platelet Count 361 k/uL (150-450); RBC 3.99 m/uL (4.30-5.90); RDW 15.7 % (11.5-15.5); WBC 9.9 k/uL (3.8-10.6)
[2017-09-07 00:54] LABS: INR 1.1 (<1.2); Partial Thromboplastin Time 24.5 sec (22.0-30.0); Prothrombin Time 10.6 sec (9.0-12.0)
[2017-09-07] MEDS: HEPARIN SODIUM,PORCINE/D5W PMX 25,000 UNIT in DEXTROSE/WATER 1 500ML.BAG IV SCH ×2 (01:20→15:39)
[2017-09-07 01:27] LABS: Calcium 8.5 mg/dL (8.4-10.2)
[2017-09-07 02:27] LABS: Glucose,Whole Blood 81 mg/dL (75-99)
[2017-09-07 02:53] LABS: Glucose,Whole Blood 81 mg/dL (75-99)
[2017-09-07 03:30] LABS: Glucose,Whole Blood 96 mg/dL (75-99)
[2017-09-07] MEDS: LEVOTHYROXINE 50 MCG TAB PO SCH (06:16)
[2017-09-07] MEDS ORDERED: IPRATROPIUM-ALBUTEROL 3 ML NEB INHALATION PRN (06:44)
[2017-09-07 07:13] LABS: Glucose,Whole Blood 120 mg/dL (75-99)
[2017-09-07] MEDS: IPRATROPIUM-ALBUTEROL 3 ML NEB INHALATION SCH ×4 (07:29→19:48)
[2017-09-07 07:43] LABS: Albumin 3.2 g/dL (3.5-5.0); Calcium 8.4 mg/dL (8.4-10.2); Total Bilirubin 0.5 mg/dL (0.2-1.3); Total Protein 6.1 g/dL (6.3-8.2)
--- NOTE | 2017-09-07 09:31 | NM ---
EXAMINATION TYPE: NM pul vent and perfuse DATE OF EXAM: 09/07/2017 COMPARISON: NONE HISTORY: Shortness of breath. TECHNIQUE: Utilizing inhalation of 66.2 mCi Tc 99m DTPA aerosol and intravenous injection of 5.3 mCi of Tc 99m MAA, ventilation and perfusion images are acquired post injection in multiple projections. FINDINGS: Normal radiotracer distribution is noted in the lungs. There is no evidence of mismatched defects. IMPRESSION: THIS EXAMINATION IS LOW PROBABILITY FOR PULMONARY EMBOLUS.
[2017-09-07] MEDS: INSULIN NPH/REG INSULIN 70/30 300 UNIT/3 ML VIAL SQ SCH ×3 (09:39→17:12)
[2017-09-07] MEDS: LISINOPRIL 2.5 MG TAB PO SCH (09:40)
[2017-09-07] MEDS: VITAMIN E (DL,TOCOPHERYL ACET) 400 UNIT CAP PO SCH (09:40)
[2017-09-07] MEDS: CARVEDILOL 6.25 MG TAB PO SCH ×2 (09:40→17:12)
[2017-09-07] MEDS: SPIRONOLACTONE 25 MG TAB PO SCH (09:40)
[2017-09-07] MEDS: FERROUS SULFATE 325 MG TAB PO SCH (09:41)
[2017-09-07] MEDS: ALLOPURINOL 300 MG TAB PO SCH (09:41)
[2017-09-07] MEDS: NON-FORMULARY DRUG (Calcium/Magnesium/Zinc [Calcium-Magnesium-Zinc Tablet] 1 TAB) PO SCH (09:41)
[2017-09-07] MEDS: CHOLECALCIFEROL 1,000 UNIT TAB PO SCH (09:41)
[2017-09-07] MEDS: ISOSORBIDE MONONITRATE ER 60 MG TAB.ER.24H PO SCH (09:41)
[2017-09-07] MEDS: ASPIRIN 81 MG PO SCH (09:41)
--- NOTE | 2017-09-07 09:45 | XR ---
EXAMINATION TYPE: XR chest 2V DATE OF EXAM: 09/07/2017 HISTORY: chf. REFERENCE: Previous study dated 09/04/2017. FINDINGS: The heart is enlarged. There is evidence of pulmonary edema. There are bilateral effusions. IMPRESSION: WORSENING CHANGES OF CONGESTIVE HEART FAILURE.
[2017-09-07] MEDS: NON-FORMULARY DRUG (Omega-3 Fatty Acids/Fish Oil [Fish Oil 1,000 Mg Capsule] 1 CAP) PO SCH (09:52)
[2017-09-07 12:06] LABS: Glucose,Whole Blood 195 mg/dL (75-99)
[2017-09-07] MEDS: busPIRone HCl 10 MG TAB PO PRN (15:59)
[2017-09-07 16:01] LABS: Basophils % (A) 0 %; Eosinophils % (A) 0 %; HCT 35.5 % (39.0-53.0); HGB 10.7 gm/dL (13.0-17.5); Hypochromasia Marked; Lymphocytes % (A) 12 %; MCHC 30.2 g/dL (31.0-37.0); MCV 96.1 fL (80.0-100.0); Mean Platelet Volume 7.9; Monocytes # (A) 0.7 k/uL (0-1.0); Monocytes % (A) 8 %; Neutrophils # (A) 6.9 k/uL (1.3-7.7); Neutrophils % (A) 79 %; Platelet Count 301 k/uL (150-450); RDW 15.7 % (11.5-15.5); WBC 8.8 k/uL (3.8-10.6)
[2017-09-07] MEDS ORDERED: FUROSEMIDE 10 MG/ML 2 ML VIAL IV ONE (16:30)
--- NOTE | 2017-09-07 16:51 | CONS ---
CONSULTATION REASON FOR CONSULT: Renal failure. HISTORY OF PRESENT ILLNESS: Patient is a 81-year-old male who was admitted to the hospital with shortness of breath. He had weakness and a fall. He was unsteady and fell forward at home. Currently, patient is short of breath. He is being diuresed. His serum creatinine was 1.9 mg/dL on admission. It is down to 1.8 now. He has been about 1.9-2 mg/dL, most of 2017. The patient's D-dimer was positive and there was concern for PE. Therefore, a chest CTA was being considered. However, it was held secondary to elevated creatinine. V/Q scan was done which showed low probability for PE. Patient has cardiomyopathy, ejection fraction 30% to 35% with mildly dilated left atrium. PAST MEDICAL HISTORY: Coronary artery disease, chronic kidney disease secondary to nephrosclerosis, NKF stage IIIB, type 2 diabetes, history of DVT. Hypothyroidism, peripheral vascular disease, bilateral venous stasis. PAST SURGICAL HISTORY: Hernia repair, cardiac catheterization, back surgery, cataract surgery. SOCIAL HISTORY: Patient is a former smoker. No history of drug abuse or alcohol abuse. MEDICATIONS: Prior to admission included Zyloprim, aspirin, Imdur, Synthroid, iron, Eliquis, Coreg, vitamin D3, vitamin E, calcium. ALLERGIES: None. PHYSICAL EXAMINATION: Patient is currently mildly short of breath. He is awake, not in any acute distress. Blood pressure of 141/63 this morning. Heart rate 58 per minute. He is afebrile. Examination of the heart S1, S2. Examination of lungs bilateral breath sounds are heard. Abdomen is soft, nontender. Examination lower extremities shows edema 2+ bilaterally with chronic skin changes. [employer] exam is grossly intact. LABS: Sodium 125, potassium 5.0, BUN 85, serum creatinine 1.8, hemoglobin 10.7 g/dL. ASSESSMENT: 1. Chronic kidney disease NKF stage IIIB with renal function close to baseline. Etiology is nephrosclerosis. 2. Hyponatremia, appears to be hypervolemic. We will maintain patient on IV Lasix. I will increase to 60 mg q.12 hours. Maintain patient on fluid restriction. 3. Congestive heart failure, systolic, acute on top of chronic. 4. Cardiomyopathy, ejection fraction 30-35%. 5. Anemia of chronic disease. Rule out iron deficiency. PLAN: Increase Lasix to 60 mg q.12 hours. Maintain patient on fluid restriction. Monitor urine output closely and check bladder scan. Rule out urinary retention. Thank you for this consultation. We will continue to follow the patient with you during his hospitalization. MMMEENAKSHIL / IJN: [id number] /
[2017-09-07 17:09] LABS: Glucose,Whole Blood 171 mg/dL (75-99)
[2017-09-07] MEDS ORDERED: FUROSEMIDE 10 MG/ML 4 ML VIAL IV SCH (18:00)
[2017-09-07] MEDS ORDERED: FUROSEMIDE 10 MG/ML 10 ML VIAL IV SCH (18:00)
[2017-09-07 20:27] LABS: Glucose,Whole Blood 250 mg/dL (75-99)
[2017-09-07 21:51] LABS: Basophils % (A) 0 %; Eosinophils # (A) 0.1 k/uL (0-0.7); Eosinophils % (A) 1 %; HCT 33.9 % (39.0-53.0); HGB 10.5 gm/dL (13.0-17.5); Hypochromasia Marked; Lymphocytes # (A) 1.2 k/uL (1.0-4.8); Lymphocytes % (A) 15 %; MCH 29.8 pg (25.0-35.0); MCHC 31.1 g/dL (31.0-37.0); MCV 95.9 fL (80.0-100.0); Mean Platelet Volume 7.4; Monocytes # (A) 0.6 k/uL (0-1.0); Monocytes % (A) 7 %; Neutrophils # (A) 6.2 k/uL (1.3-7.7); Neutrophils % (A) 77 %; Platelet Count 223 k/uL (150-450); RBC 3.54 m/uL (4.30-5.90); RDW 15.9 % (11.5-15.5); WBC 8.1 k/uL (3.8-10.6)
[2017-09-07 21:55] LABS: INR 1.1 (<1.2); Partial Thromboplastin Time 31.2 sec (22.0-30.0)
[2017-09-08 00:56] LABS: Glucose,Whole Blood 60 mg/dL (75-99)
[2017-09-08 01:14] LABS: Glucose,Whole Blood 40 mg/dL (75-99)
[2017-09-08 01:18] LABS: Glucose,Whole Blood 50 mg/dL (75-99)
[2017-09-08] MEDS ORDERED: DEXTROSE 50%-WATER 50 ML SYRINGE IVP STA (01:21)
[2017-09-08] MEDS ORDERED: DEXTROSE 5% IN WATER 50 ML BAG ONE (01:28)
[2017-09-08] MEDS ORDERED: EPINEPHrine 10 ML SYRINGE (0.1 MG/ML) ONE (01:28)
[2017-09-08] MEDS ORDERED: AMIODARONE 50 MG/ML 3 ML VIAL IV ONE (01:28)
[2017-09-08] MEDS ORDERED: SODIUM BICARB 8.4% 50 ML SYR (1 MEQ/ML) ONE (01:28)
[2017-09-08 01:49] LABS: Glucose,Whole Blood 65 mg/dL (75-99)
[2017-09-08 05:31] VITALS: BP 95/54; PULSE 45; RESP 22; TEMP 95.6
--- NOTE | 2017-09-08 18:37 | PN ---
PROGRESS NOTE DATE OF SERVICE: 09/07/2017. CHIEF COMPLAINT: Congestive heart failure, diabetes, hypertension. HISTORY OF PRESENT ILLNESS: This gentleman is a doing fairly well. His vital signs are normal. He is still slightly short of breath, but he seems to be fairly stable. PHYSICAL EXAM: Cardiac exam is unchanged and chest demonstrates somewhat decreased breath sounds with occasional rales and rhonchi. The abdomen is soft, nontender and extremities are unchanged. IMPRESSION: 1. Congestive heart failure. 2. Uncontrolled diabetes. 3. Venostasis disease. PLAN: 1. Continue efforts to diuresis. 2. Manage diabetes. MMODL / IJN: [id number] /
--- NOTE | 2017-09-08 19:22 | DS ---
DISCHARGE SUMMARY CHIEF COMPLAINT: Difficulty breathing and congestive heart failure. HISTORY OF PRESENT ILLNESS AND PHYSICAL EXAM: Details of this man's history and physical can be found in the initial workup. LABORATORY STUDIES: While he was in a hospital he had laboratory studies, which can be found in the laboratory section of chart. COURSE IN HOSPITAL: After admission placed at bedrest, started on intravenous fluids and was diuresed. He was seen in consultation by Cardiology. He seemed to start to do fairly well and then began to complain of a little bit more shortness of breath. D-dimer was obtained. It was elevated. He was sent for V/Q scan, which suggested low probability. He was then placed on low-dose prophylaxis IV heparin for DVT prevention. He started to become agitated at night and later on that evening went into cardiorespiratory arrest. He was to be fully resuscitated. Resuscitative measures continued for over half an hour without success. He was pronounced . FINAL DIAGNOSES: 1. Acute congestive heart failure. 2. Chronic congestive heart failure. 3. Atherosclerotic cardiovascular disease. 4. Hypertension. 5. Poorly controlled insulin diabetes mellitus. 6. Chronic renal failure. 7. Venostasis disease. OPERATIONS: None. CONSULTATIONS: Cardiology and Nephrology. He is not improved. He . MMODL / IJN: [id number] /
[2017-09-09] MEDS ORDERED: SACUBITRIL/VALSARTAN 24 MG-26 MG TABLET PO SCH (09:00)
--- NOTE | 2017-09-11 12:10 | MISC ---
MISCELLANOUS REPORT QUERY: He had acute on chronic renal failure stage 2. MMMARISOL / ROSEN: [id number] /
--- NOTE | 2017-09-13 07:25 | CDI ---
Last Revision, April 2017 Documentation Clarification Form Date: 09/13/17 From: Radhika Wilson Phone: If you have a question regarding this query, please contact Katie Wall at [phone] between 8am and 5pm. Admit Date: 09/05/2017 12:23:00 AM Patient Name: Tariq White Visit Number: [id number] Discharge Date: 09/08/17 ATTENTION: The Clinical Documentation Specialists (CDI) and [facility] Coding Staff appreciate your assistance in clarifying documentation. Please respond to the clarification below the line at the bottom and electronically sign. The CDI & [facility] Coding staff will review the response and follow-up if needed. Please note: Queries are made part of the Legal Health Record. If you have any questions, please contact the author of this message via ITS. Dr. José Hazel The patient presented with shortness of breath and falling and was found to be in congestive heart failure and was diuresed. The patient also has CAD, hypertension, chronic renal failure and poorly controlled diabetes. Per documentation in the discharge summary, he seemed to start to do fairly well and then began to complain of a little bit more shortness of breath. D-dimer was obtained and was elevated. He was sent for V/Q scan, which suggested low probability and was place on low-dose prophylaxis IV heparin for DVT prvention. On 09/08, he started to become agitated at night and later on that evening went into cardiorespiratory arrest. Resuscitative measures continued for over half an hour without success. He was pronounced . In your professional opinion, can you please clarify the preliminary cause of ? JAVI
--- NOTE | 2017-09-17 10:52 | MISC ---
MISCELLANOUS REPORT QUERY Primary cause of cardiorespiratory arrest secondary to atherosclerosis. MMODL / IJN: [id number] /
== END 2017-09-08 05:32 | disposition expired | DRG 291 ==
LOC: EC 23:03 → 5MS5E 09-05 00:23 → 4MS4W 09-05 14:46
PROVIDERS: ADMIT Family Medicine; ATTEND Family Medicine
DX: I13.0 Hypertensive heart and chronic kidney disease with heart failure and stage 1 through stage 4 chronic kidney disease, or unspecified chronic kidney disease (principal); I50.23 Acute on chronic systolic (congestive) heart failure; E87.1 Hypo-osmolality and hyponatremia; D63.8 Anemia in other chronic diseases classified elsewhere; E03.9 Hypothyroidism, unspecified; E11.22 Type 2 diabetes mellitus with diabetic chronic kidney disease; E11.51 Type 2 diabetes mellitus with diabetic peripheral angiopathy without gangrene; E11.65 Type 2 diabetes mellitus with hyperglycemia; E66.01 Morbid (severe) obesity due to excess calories; E78.5 Hyperlipidemia, unspecified; H91.90 Unspecified hearing loss, unspecified ear; I25.10 Atherosclerotic heart disease of native coronary artery without angina pectoris; I25.2 Old myocardial infarction; I25.5 Ischemic cardiomyopathy; I27.20 Pulmonary hypertension, unspecified; I45.10 Unspecified right bundle-branch block; N18.3 Chronic kidney disease, stage 3 (moderate); I48.0 Paroxysmal atrial fibrillation; I08.3 Combined rheumatic disorders of mitral, aortic and tricuspid valves; I87.8 Other specified disorders of veins; M19.90 Unspecified osteoarthritis, unspecified site; R62.7 Adult failure to thrive; M10.9 Gout, unspecified; S51.012A Laceration without foreign body of left elbow, initial encounter; S40.012A Contusion of left shoulder, initial encounter; Z79.01 Long term (current) use of anticoagulants; Z79.4 Long term (current) use of insulin; Z79.82 Long term (current) use of aspirin; Z79.890 Hormone replacement therapy; Z79.899 Other long term (current) drug therapy; Z98.42 Cataract extraction status, left eye; Z98.41 Cataract extraction status, right eye; Z96.1 Presence of intraocular lens; Z91.19 Patient's noncompliance with other medical treatment and regimen; Z87.891 Personal history of nicotine dependence; Z86.718 Personal history of other venous thrombosis and embolism; Z95.5 Presence of coronary angioplasty implant and graft; Z83.3 Family history of diabetes mellitus; Z82.3 Family history of stroke; Z68.34 Body mass index [BMI] 34.0-34.9, adult; W19.XXXA Unspecified fall, initial encounter; Y92.9 Unspecified place or not applicable
CPT/HCPCS: 36415; 70450; 71046; 78582; 80048; 80053; 82272; 82550; 82553; 83036; 83880; 84484; 85025; 85379; 85610; 85730; 93005; 93306; 94640; 94760; 96374; 99285